=== PATIENT | female | born 1940 | race Caucasian/White ===

== ENCOUNTER 2018-07-11 11:25 | Emergency (ER) | payer OTHER ==
--- OUTSIDE RECORDS SUMMARY | 2018-07-11 11:28 | XMS REPORT | Clinical Summary ---
:1940 Author Organization [facility] Address [address] [place] [address] Care Team Providers Name Role Phone David Molina MD Primary Care Provider Allergies No Known Allergies Medications Medication Sig Dispensed Refills Start Date End Date Status losartan (COZAAR) 100 MG Take 50 mg by 0 Active tablet mouth daily. furosemide (LASIX) 20 MG Take 20 mg by 0 Active tablet mouth daily. potassium chloride Take 20 mEq 0 Active (K-DUR,KLOR-CON) 10 MEQ CR by mouth tablet every morning. In the morning potassium chloride Take 10 mEq 0 Active (K-DUR,KLOR-CON) 10 MEQ CR by mouth tablet every evening. magnesium oxide (MAG-OX) Take 400 mg 0 Active 400 mg tablet by mouth daily. ALPRAZolam (XANAX) 0.5 MG Take 0.5 mg 0 Active tablet by mouth nightly as needed. traZODone (DESYREL) 100 MG Take 100 mg 0 Active tablet by mouth nightly. fexofenadine (HYACINTH) 180 Take 180 mg 0 Active MG tablet by mouth daily as needed (allergies). fluticasone (FLONASE) 50 1 spray into 0 Active mcg/actuation nasal spray each nostril daily as needed. ascorbic acid, vitamin C, Take 1,000 mg 0 Active (VITAMIN C) 1000 MG tablet by mouth daily. methylsulfonylmethane (MSM) Take 1 0 Active 1,000 mg capsule capsule by mouth daily. GLUCOSAM/CHOND/HYALU/CF Take 1 0 Active BORATE (MOVE FREE JOINT capsule by HEALTH ORAL) mouth daily. dabigatran etexilate Take 75 mg by 0 Active (PRADAXA) 75 mg capsule mouth 2 (two) times a day. Active Problems Problem Noted Date Atypical atrial flutter 05/09/2016 Atrial fibrillation with RVR 01/23/2016 Family History Medical History Relation Name Comments Lung cancer Brother Hypertension Father Kidney failure Father Diabetes Mother Heart attack Mother Hypertension Mother Stroke Mother Relation Name Status Comments Brother Father Mother Social History Tobacco Use Types Packs/Day Years Used Date Former Smoker 1 23 Tobacco Cessation: Counseling Given: No Alcohol Use Drinks/Week oz/Week Comments No Sex Assigned at Date Recorded Not on file Job Start Date Occupation Industry Not on file Not on file Not on file Travel History Travel Start Travel End No recent travel history available. Last Filed Vital Signs Not on file Plan of Treatment Health Maintenance Due Date Last Done Comments SHINGLES VACCINES (1 of 2) 1990 PNEUMOCOCCAL POLYSACCHARIDE VACCINE AGE 65 AND OVER 2005 PNEUMOCOCCAL-13 2005 INFLUENZA VACCINE 01/03/2018 Implants Implanted Type Area Manager Office Device Shelf Model / Identifier Expiration Serial / Date Lot System Reveal Linq W/Monitors - [id number] Cardiac N/A: [employer] 2016 LINQSYS / Implanted: 06/08/2016 (Quantity not on file) Pacemakers and N/A CARDIAC RHYTHM / Related DISEASE MGMT [id number] Products Results Not on fileafter 07/10/2017 Insurance Payer Benefit Plan / Group Subscriber ID Type Phone Address MEDICARE MEDICARE PART A AND B xxxxxxxxxx Medicare [place], [place] FOR LIFE xxxxxxxxx Advance Directives Patient has advance care planning documents, and code status on file. For more information, please contact:[place] [address] Code Status Date Activated Date Inactivated Comments Full Code 01/24/2016 11:13 AM 01/26/2016 6:59 PM Code Status decision reached by: Patient
--- NOTE | 2018-07-11 12:54 | RAD REPORT ---
EXAM DESCRIPTION: RAD - Chest Pa And Lat (2 Views) - 07/11/2018 12:48 pm CLINICAL HISTORY: COUGH Chest pain. COMPARISON: Chest Pa And Lat (2 Views) dated 09/08/2016; CHEST SINGLE VIEW dated 10/13/2010 FINDINGS: The lungs are clear. The heart is mildly prominent in size with postsurgical changes of a CABG noted. No displaced fractures. IMPRESSION: No acute abnormality is suspected. Mild cardiomegaly with postsurgical changes of a CABG noted.
--- NOTE | 2018-07-11 13:12 | ER ---
Nurse's Notes [facility] Name: Allegra Anton Age: 77 yrs Sex: Female : 1940 Arrival Date: 07/11/2018 Time: 11:29 Bed 7 Private MD: Torrey Sahu F Diagnosis: Acute bronchitis Presentation: 07/11 11:39 Presenting complaint: Patient states: productive cough that began 1 week ago. Pt denies aa5 SOB. Pt states "It's hard for me to sleep because I've been coughing so much". Transition of care: patient was not received from another setting of care. Onset of symptoms was June 2018. Risk Assessment: Do you want to hurt yourself or someone else? Patient reports no desire to harm self or others. Initial Sepsis Screen: Does the patient meet any 2 criteria? No. Patient's initial sepsis screen is negative. Does the patient have a suspected source of infection? No. Patient's initial sepsis screen is negative. Care prior to arrival: None. 11:39 Method Of Arrival: Ambulatory aa5 11:39 Acuity: TANIKA 3 aa5 Historical: - Allergies: 11:40 No Known Allergies; aa5 - PMHx: 11:40 Atrial Fib; Hypertension; Myocardial infarction; aa5 - PSHx: 11:40 Heart stents; Heart Double bypass; Heart Monitor; Heart Ablation; aa5 - Immunization history:: Pneumococcal vaccine is up to date, Flu vaccine is up to date. - Social history:: Smoking status: Patient/guardian denies using tobacco. - Ebola Screening: : No symptoms or risks identified at this time. Screenin:36 Abuse screen: Denies threats or abuse. Denies injuries from another. Nutritional iw screening: No deficits noted. Tuberculosis screening: No symptoms or risk factors identified. Fall Risk None identified. Assessment: 12:30 General: Appears in no apparent distress. comfortable, Behavior is calm, cooperative, aj appropriate for age. Pain: Denies pain. Cardiovascular: No deficits noted. Capillary refill < 3 seconds in bilateral fingers Patient's skin is warm and dry. Respiratory: Reports cough that is productive, persistent Airway is patent Respiratory effort is even, unlabored, Respiratory pattern is regular, symmetrical, Breath sounds are clear. Derm: Skin is intact, is healthy with good turgor, Skin is pink, warm \\T\\ dry. normal. Vital Signs: 11:41 BP 151 / 72; Pulse 60; Resp 18 S; Temp 98.6(TE); Pulse Ox 96% on R/A; Weight 58.97 kg aa5 (R); Height 5 ft. 2 in. (157.48 cm) (R); Pain 3/10; 11:41 Body Mass Index 23.78 (58.97 kg, 157.48 cm) aa5 11:41 Pt c/o headache aa5 ED Course: 11:29 Patient arrived in ED. mr 11:29 Torrey Sahu MD is Private Physician. mr 11:40 Triage completed. aa5 11:41 Arm band placed on. aa5 11:42 Micah Coronel MD is Attending Physician. rn 11:42 Chris Negron PA is PHCP. [facility] 11:43 Chris Negron PA is PHCP. [facility] 11:43 Talisha Worthy RN is Primary Nurse. aj 12:47 X-ray completed. Patient tolerated procedure well. Patient moved back from radiology. 1 12:51 XRAY Chest Pa And Lat (2 Views) In Process Unspecified. EDMS 13:12 Torrey Sahu MD is Referral Physician. [facility] 13:36 No provider procedures requiring assistance completed. Patient did not have IV access iw during this emergency room visit. 13:38 Patient has correct armband on for positive identification. iw Administered Medications: No medications were administered Outcome: 13:12 Discharge ordered by MD. [facility] 13:37 Discharged to home ambulatory, with family. iw 13:37 Condition: good 13:37 Discharge instructions given to patient, family, Instructed on discharge instructions, follow up and referral plans. Demonstrated understanding of instructions, follow-up care, medications, Prescriptions given X 3. 13:38 Patient left the ED. iw Signatures: Dispatcher [employer] EDMS Talisha Worthy, Chris Schroeder RN, PA PA [facility] Cynthia Ferguson Martha 1 Fatimah Malin, TEJAS LAZARO iw Micah Coronel MD MD rn Calderon, Audri, RN RN [facility]
--- NOTE | 2018-07-11 13:13 | EDPHYS ---
Physician Documentation [facility] Name: Allegra Anton Age: 77 yrs Sex: Female : 1940 Arrival Date: 07/11/2018 Time: 11:29 Bed 7 Private MD: Torrey Sahu F ED Physician Micah Coronel HPI: 07/11 11:43 This 77 yrs old Female presents to ER via Ambulatory with complaints of jmm Cough, Congestion. 11:43 The patient or guardian reports cough, with productive sputum. Associated signs and jmm symptoms: Pertinent negatives: fever. This is a 77 year old female with a history of CAD, HTN that presents to the ED with complaints of productive cough, sore throat for 1 week. Patient denies fever. had similar symptoms which resolved after a course of antibiotics. Denies chest pain, denies fever. . Historical: - Allergies: 11:40 No Known Allergies; aa5 - PMHx: 11:40 Atrial Fib; Hypertension; Myocardial infarction; aa5 - PSHx: 11:40 Heart stents; Heart Double bypass; Heart Monitor; Heart Ablation; aa5 - Immunization history:: Pneumococcal vaccine is up to date, Flu vaccine is up to date. - Social history:: Smoking status: Patient/guardian denies using tobacco. - Ebola Screening: : No symptoms or risks identified at this time. ROS: 11:43 Constitutional: Negative for fever, chills, and weight loss, Cardiovascular: Negative jmm for chest pain, palpitations, and edema. 11:43 Abdomen/GI: Negative for abdominal pain, nausea, vomiting, diarrhea, and constipation. 11:43 ENT: Positive for ear pain, sore throat. 11:43 Respiratory: Positive for cough. 11:43 All other systems are negative. Exam: 11:43 Constitutional: This is a well developed, well nourished patient who is awake, alert, jmm and in no acute distress. Head/Face: atraumatic. Eyes: EOMI, no conjunctival erythema appreciated 11:43 Neck: Trachea midline, Supple Chest/axilla: Normal chest wall appearance and motion. Cardiovascular: Regular rate and rhythm. No edema appreciated Respiratory: Normal respirations, no respiratory distress appreciated Abdomen/GI: Non distended, soft Back: Normal ROM Skin: General appearance color normal MS/ Extremity: Moves all extremities, no obvious deformities appreciated, no edema noted to the lower extremities Neuro: Awake and alert, normal gait Psych: Behavior is normal, Mood is normal, Patient is cooperative and pleasant 11:43 ENT: TM's: are normal, Posterior pharynx: erythema, that is mild. 11:43 Respiratory: Breath sounds: are clear throughout. Vital Signs: 11:41 BP 151 / 72; Pulse 60; Resp 18 S; Temp 98.6(TE); Pulse Ox 96% on R/A; Weight 58.97 kg aa5 (R); Height 5 ft. 2 in. (157.48 cm) (R); Pain 3/10; 11:41 Body Mass Index 23.78 (58.97 kg, 157.48 cm) aa5 11:41 Pt c/o headache aa5 MDM: 11:43 Patient medically screened. rn 13:04 Data reviewed: vital signs, nurses notes. Counseling: I had a detailed discussion with naya the patient and/or guardian regarding: the historical points, exam findings, and any diagnostic results supporting the discharge/admit diagnosis, radiology results, the need for outpatient follow up, to return to the emergency department if symptoms worsen or persist or if there are any questions or concerns that arise at home. ED course: Patient is alert and non toxic in appearance in the ED. CXR negative. Patient has no signs of RESP distress. Patient advised to follow up with Dr. Durham for reevaluation. Patient given strict return precautions. Patient understood and agrees with the plan of care. . 07/11 11:51 Order name: Flu; Complete Time: 12:41 [facility] 07/11 11:42 Order name: XRAY Chest Pa And Lat (2 Views); Complete Time: 12:56 rn Administered Medications: No medications were administered Disposition: 14:09 Co-signature as Attending Physician, Micah Coronel MD. rn Disposition: 07/11/18 13:12 Discharged to Home. Impression: Acute bronchitis. - Condition is Stable. - Discharge Instructions: Acute Bronchitis, Adult. - Prescriptions for cefdinir 300 mg Oral capsule - take 1 capsule by ORAL route every 12 hours; 20 capsule. benzonatate 100 mg Oral Capsule - take 1 capsule by ORAL route 3 times per day; 20 capsule. Albuterol Sulfate 90 mcg/actuation - inhale 1-2 puff by INHALATION route every 4-6 hours; 1 Inhaler. - Medication Reconciliation Form, Thank You Letter, Antibiotic Education, Prescription Opioid Use form. - Follow up: Torrey Sahu MD; When: 2 - 3 days; Reason: Recheck today's complaints, Continuance of care, Re-evaluation by your physician. Signatures: Dispatcher [employer] EDMS Chris Negron PA PA jmm Williams, Irene, RN RN iw Nieto, Roman, MD MD rn Calderon, Audri, RN RN aa5 Corrections: (The following items were deleted from the chart) 13:38 13:12 07/11/2018 13:12 Discharged to Home. Impression: Acute bronchitis. Condition is iw Stable. Forms are Medication Reconciliation Form, Thank You Letter, Antibiotic Education, Prescription Opioid Use. Follow up: Torrey Sahu; When: 2 - 3 days; Reason: Recheck today's complaints, Continuance of care, Re-evaluation by your physician. naya
== END 2018-07-11 13:38 | disposition home or self-care (01) ==
LOC: ER 11:25
DX: J20.9 Acute bronchitis, unspecified (principal); I10 Essential (primary) hypertension; I25.2 Old myocardial infarction; Z95.818 Presence of other cardiac implants and grafts
CPT/HCPCS: 71046; 87804; 99283

== ENCOUNTER 2020-09-07 19:12 | Emergency (ER) | payer OTHER ==
--- OUTSIDE RECORDS SUMMARY | 2020-09-07 19:16 | XMS REPORT | Continuity of Care Document ---
:1940 Author Organization [facility] t Address [address] [place] [address] Dr. [address]. [address] [place] [address] Care Team Providers Name Role Phone Lenin Phillips MD Attending Clinician Problems This patient has no known problems. Allergies, Adverse Reactions, Alerts This patient has no known allergies or adverse reactions. Medications This patient has no known medications. Procedures This patient has no known procedures. Encounters Start End Encounter Admission Attending Care Care Encounter Source Date/Time Date/Time Type Type Clinicians Facility Department ID 2020-08-17 2020-08-17 Office MATHEW Phillips [id number] 13:23:00 15:03:34 Visit Jem Borges [id number] Patricia [id number] Carlo [id number] [facility] 2020-04-07 2020-04-07 Outpatient [facility] [id number] [facility] 2020-03-31 2020-03-31 Outpatient [facility] [id number] [facility] 2020-03-09 2020-03-09 Outpatient [facility] [id number] [facility] Results This patient has no known results.
--- NOTE | 2020-09-07 19:26 | EDPHYS ---
Physician Documentation [facility] Name: Allegra Anton Age: 80 yrs Sex: Female : 1940 Arrival Date: 09/07/2020 Time: 19:13 Bed Waiting Private MD: ED Physician Dalton Howard HPI: 09/07 19:40 This 80 yrs old Female presents to ER via Ambulatory with complaints of kb Medication Refill. 19:40 The patient presents to the emergency department requesting refill(s) for: Xanax. The kb patient chronically suffers from anxiety. The patient has not experienced similar symptoms in the past. The patient has not recently seen a physician. Pt reports she has taken xanax nightly for sleep for the last 18 years. States she cannot sleep without it and she took her last one last night. States she takes the lowest dose available, 0.25mg, but cannot stop taking it. . Historical: - Allergies: 19:18 No Known Allergies; ll1 - PMHx: 19:18 Atrial Fib; Hypertension; Myocardial infarction; ll1 - PSHx: 19:18 Heart stents; Heart Double bypass; Heart Monitor; Heart Ablation; ll1 - Immunization history:: Client reports receiving the 1st dose of the Covid vaccine, . - Social history:: Smoking status: Patient denies any tobacco usage or history of. ROS: 19:39 Constitutional: Negative for fever, chills, and weight loss, Cardiovascular: Negative kb for chest pain, palpitations, and edema, Respiratory: Negative for shortness of breath, cough, wheezing, and pleuritic chest pain, Abdomen/GI: Negative for abdominal pain, nausea, vomiting, diarrhea, and constipation, MS/Extremity: Negative for injury and deformity, Skin: Negative for injury, rash, and discoloration, Neuro: Negative for headache, weakness, numbness, tingling, and seizure. Exam: 19:40 Constitutional: This is a well developed, well nourished patient who is awake, alert, kb and in no acute distress. Head/Face: Normocephalic, atraumatic. Respiratory: Respirations even and unlabored. No increased work of breathing, no retractions or nasal flaring. Neuro: Awake and alert, GCS 15, oriented to person, place, time, and situation. Moves all extremities. Normal gait. Vital Signs: 19:21 BP 179 / 64; Pulse 53; Resp 16; Temp 97.3; Pulse Ox 96% ; Weight 55.79 kg; Height 5 ft. ll1 2 in. (157.48 cm); Pain 0/10; 19:21 Body Mass Index 22.50 (55.79 kg, 157.48 cm) ll1 MDM: 19:25 Patient medically screened. kb 19:40 Data reviewed: vital signs, nurses notes. Data interpreted: Pulse oximetry: on room air kb is 96 %. Interpretation: normal. Counseling: I had a detailed discussion with the patient and/or guardian regarding: the historical points, exam findings, and any diagnostic results supporting the discharge/admit diagnosis, the need for outpatient follow up, a family practitioner, to return to the emergency department if symptoms worsen or persist or if there are any questions or concerns that arise at home. Administered Medications: No medications were administered Disposition: 09/08 08:16 Co-signature as Attending Physician, Dalton Howard MD. mikey Disposition: 09/07/20 19:25 Discharged to Home. Impression: Encounter for issue of repeat prescription. - Condition is Stable. - Discharge Instructions: Medicine Refill at the Emergency Department. - Prescriptions for alprazolam 0.25 mg Oral tablet - take 1 tablet by ORAL route At bedtime; 10 tablet. - Medication Reconciliation Form, Thank You Letter, Antibiotic Education, Prescription Opioid Use form. - Follow up: Emergency Department; When: As needed; Reason: Worsening of condition. Follow up: Private Physician; When: 2 - 3 days; Reason: Recheck today's complaints, Continuance of care, Re-evaluation by your physician. Signatures: Tamiko Whalen, SABRA MARTINEZ-Dalton Riley MD MD pkl Claudia Ramirez RN RN ll1 Corrections: (The following items were deleted from the chart) 09/07 19:40 19:25 09/07/2020 19:25 Discharged to Home. Impression: Encounter for issue of repeat ll1 prescription. Condition is Stable. Forms are Medication Reconciliation Form, Thank You Letter, Antibiotic Education, Prescription Opioid Use. Follow up: Emergency Department; When: As needed; Reason: Worsening of condition. Follow up: Private Physician; When: 2 - 3 days; Reason: Recheck today's complaints, Continuance of care, Re-evaluation by your physician. kb
--- NOTE | 2020-09-07 19:26 | ER ---
Nurse's Notes [facility] Name: Allegra Anton Age: 80 yrs Sex: Female : 1940 Arrival Date: 09/07/2020 Time: 19:13 Bed Waiting Private MD: Diagnosis: Encounter for issue of repeat prescription Presentation: 09/07 19:21 Chief complaint: Patient states: Took her last alprazolam .25 mg PO last night. Out ll1 now. Coronavirus screen: Client denies travel out of the [place] in the last 14 days. At this time, the client does not indicate any symptoms associated with coronavirus-19. Ebola Screen: Patient denies travel to an Ebola-affected area in the 21 days before illness onset. Initial Sepsis Screen: Does the patient meet any 2 criteria? No. Patient's initial sepsis screen is negative. Does the patient have a suspected source of infection? No. Patient's initial sepsis screen is negative. Risk Assessment: Do you want to hurt yourself or someone else? Patient reports no desire to harm self or others. Onset of symptoms was September 07, 2020. 19:21 Method Of Arrival: Ambulatory ll1 19:21 Acuity: TANIKA 5 ll1 Triage Assessment: 19:21 General: Appears in no apparent distress. Behavior is calm, cooperative, appropriate ll1 for age. General: needs xanax prescription refill.. Pain: Denies pain. Historical: - Allergies: 19:18 No Known Allergies; ll1 - PMHx: 19:18 Atrial Fib; Hypertension; Myocardial infarction; ll1 - PSHx: 19:18 Heart stents; Heart Double bypass; Heart Monitor; Heart Ablation; ll1 - Immunization history:: Client reports receiving the 1st dose of the Covid vaccine, . - Social history:: Smoking status: Patient denies any tobacco usage or history of. Screenin:38 Abuse screen: Denies threats or abuse. Nutritional screening: No deficits noted. ll1 Tuberculosis screening: No symptoms or risk factors identified. Fall Risk None identified. Total Lockhart Fall Scale indicates No Risk (0-24 pts). Vital Signs: 19:21 BP 179 / 64; Pulse 53; Resp 16; Temp 97.3; Pulse Ox 96% ; Weight 55.79 kg; Height 5 ft. ll1 2 in. (157.48 cm); Pain 0/10; 19:21 Body Mass Index 22.50 (55.79 kg, 157.48 cm) ll1 ED Course: 19:13 Patient arrived in ED. cf2 19:17 Arm band placed on Patient notified of wait time. ll1 19:23 Tamiko Whalen FNP-C is [facility]. kb 19:23 Dalton Howard MD is Attending Physician. kb 19:25 Triage completed. ll1 19:39 Patient has correct armband on for positive identification. Call light in reach. Side ll1 rails up X 1. 19:39 No provider procedures requiring assistance completed. Patient did not have IV access ll1 during this emergency room visit. Administered Medications: No medications were administered Outcome: 19:25 Discharge ordered by . kb 19:39 Discharged to home ambulatory. ll1 19:39 Condition: stable 19:39 Discharge instructions given to patient, Instructed on discharge instructions, follow up and referral plans. medication usage, Demonstrated understanding of instructions, follow-up care, medications, Prescriptions given X 1. 19:40 Patient left the ED. ll1 Signatures: Tamiko Whalen FNP-C FNP-Izzy Barron cf2 Claudia Ramirez, RN RN ll1
[2020-09-07 22:27] VITALS: BP 179/64; TEMP 97.3; O2SAT 96
== END 2020-09-07 19:40 | disposition home or self-care (01) ==
LOC: ER 19:12
DX: Z76.0 Encounter for issue of repeat prescription (principal); F41.9 Anxiety disorder, unspecified; I10 Essential (primary) hypertension; I48.91 Unspecified atrial fibrillation; I25.2 Old myocardial infarction; Z95.5 Presence of coronary angioplasty implant and graft; Z95.1 Presence of aortocoronary bypass graft
CPT/HCPCS: 99282

== ENCOUNTER 2020-12-12 12:17 | Emergency (ER) | payer OTHER ==
--- OUTSIDE RECORDS SUMMARY | 2020-12-12 12:22 | XMS REPORT | Continuity of Care Document ---
:[address] [facility] t Address [address] [place] [address] Care Team Providers Name Role Phone Tracy SANDRA Primary Care Physician Lillie SANDRA Attending Clinician Jacqueline SANDRA, Gene Attending Clinician Problems Condition Condition Condition Status Onset Resolution Last Treating Co mments Source Name Details Category Date Date Treatment Clinician Date Atypical A[facility]ical Disease [facility] flutter 00:[facility]: st 00 Atrial Atrial Disease Active [place] fibr[facility]ati fibrillati 8-20 Me thodi on with on with 00:00: st RVR RVR 00 Allergies, Adverse Reactions, Alerts This patient has no known allergies or adverse reactions. Family History Family Member Diagnosis Comments Start Date Stop Date Source Natural mother Stroke [place] [facility] Natural mother Diabetes [place] [facility] Natural mother Heart attack [facility] Natural mother Hypertension [facility] Natural brother Lung cancer [facility] Natural father Hypertension [facility] Natural father Kidney failure [place] Social History Social Habit Start Date Stop Date Quantity Comments Source Cigarettes smoked 2017-01-03 2017-01-03 [facility] current (pack per 00:00:00 00:00:00 day) - Reported Cigarette 2017-01-03 2017-01-03 [facility] pack-years 00:00:00 00:00:00 Alcohol intake 2017-01-03 2017-01-03 Current [place] [facility] 00:00:00 00:00:00 non-drinker of alcohol (finding) Sex Ass[birth year] At [birth year] [place] [facility] 00:00:00 00:00:00 Smoking Status Start Date Stop Date Source Former smoker 2017-01-03 00:00:00 2017-01-03 00:00:00 [facility] Medications Ordered Filled Start Stop Current Ordering Indication Dosage Frequency Signature Comments Components Source Medication Medication Date Date Medication? Clinician (SIG) Name Name losartan 2017- Yes 50mg QD Take 50 mg [place] (COZAAR) 8-01 by mouth [facility] 100 MG 14:49: daily. st tablet 11 furosemide Yes 20mg QD Take 20 mg [place] (LASIX) 20 8-01 by mouth Metho di MG tablet 14:49: daily. st 11 potassium 2017- Yes 20meq QD Take 20 [place] chloride 8-01 mEq by [facility] (K-DUR,KLOR 14:49: mouth st -CON) 10 11 every MEQ CR morning. tablet In the morning potassium 2017- Yes 10meq QD Take 10 [place] chloride 8-01 mEq by [facility] (K-DUR,KLOR 14:49: mouth st -CON) 10 11 every MEQ CR evening. tablet magnesium 2017 Yes 400mg QD Take 400 [place] oxide 8-01 mg by [facility] (MAG-OX) 14:49: mouth st 400 mg 11 daily. tablet ALPRAZolam 2017- Yes .5mg QD Take 0.5 [place] (XANAX) 0.5 8-01 mg by [facility] MG tablet 14:49: mouth st 11 nightly as needed. traZODone 2017-0 Yes 100mg QD Take 100 [place] (DESYREL) 8-01 mg by [facility] 100 MG 14:49: mouth st tablet 11 nightly. fexofenadin 2017-0 Yes 180mg Q24H Take 180 [place] e (HYACINTH) 8-01 mg by [facility] 180 MG 14:49: mouth st tablet 11 daily as needed (allergies ). fluticasone 2017- Yes 1{spray Q24H 1 spray [facility] (FLONASE) 01-03 } into each Metho di 50 14:49: nostril st mcg/actuati 11 daily as on nasal needed. spray ascorbic 2016- Yes 1000mg QD Take 1,000 [place] acid, 8-01 mg by Lori vitamin C, 14:49: mouth st (VITAMIN C) 11 daily. 1000 MG tablet methylsulfo Yes 1{capsu QD Take 1 [place] nylmethane 01-03 le} capsule by Met garcia (MSM) 1,000 14:49: mouth st mg capsule 11 daily. GLUCOSAM/CH 2017 Yes 1{capsu QD Take 1 [place] OND/HYALU/C 8 le} capsule by Me jenn Connors BORGILMER 14:49: mouth st (MOVE FREE 11 daily. [facility]) dabigatran Yes 75mg Q.5D Take 75 mg [place] etexilate 01-03 by mouth 2 Meth felecia (PRADAXA) 14:49: (two) st 75 mg 11 times a capsule day. Procedures This patient has no known procedures. Plan of Care Planned Activity Planned Date Details Comments Source Future Scheduled 2021-01-03 INFLUENZA VACCINE [facility] Test 00:00:00 [code = INFLUENZA VACCINE] Future Scheduled 2005 65+ PNEUMOCOCCAL [facility] Test 00:00:00 VACCINE (1 of 1 - PPSV23) [code = 65+ PNEUMOCOCCAL VACCINE (1 of 1 - PPSV23)] Future Scheduled 1990 SHINGLES VACCINES (#1) [facility] Test 00:00:00 [code = SHINGLES VACCINES (#1)] Future Scheduled 1952 COVID-19 VACCINE (1) [facility] Test 00:00:00 [code = COVID-19 VACCINE (1)] Encounters Start End Encounter Admission Attending Care Care Encounter Source Date/Time Date/Time Type Type Clinicians Facility Department ID 2020-12-07 2020-12-07 MATHEW Reid [id number] 00:00:00 00:00:00 Anthony Borges [id number] Patricia [id number] Carlo [phone] [address] 2020-09-24 2020-09-24 Telephone [facility] [id number] 00:00:00 00:00:00 Anthony Borges [id number] [place] [id number] Professio [id number] [address] 2020-09-22 2020-09-22 [facility] [id number] 14:45:00 23:59:00 Encounter Jem Phelps [facility] [id number] [facility] [id number] 2020-09-07 2020-09-07 Refill [facility] [id number] 00:00:00 00:00:00 Anthony Borges [id number] [place] [id number] Professio [id number] [address] 2020-08-17 2020-08-17 Office [facility] [id number] 13:23:00 15:03:34 Visit Jem [place] [id number] [place] [id number] Professio [id number] [address] 2020-04-07 2020-04-[address] [facility] [id number] 2020-03-31 2020-03-31 [facility] [id number] [facility] 2020-03-09 2020-03-09 [facility] [id number] [facility] Results This patient has no known results.
--- NOTE | 2020-12-12 12:40 | EDPHYS ---
Physician Documentation [facility] Name: Allegra Anton Age: 80 yrs Sex: Female : 1940 Arrival Date: 12/12/2020 Time: 12:21 Bed Waiting Private MD: ED Physician Rod Simmons HPI: 12/12 12:37 This 80 yrs old Female presents to ER via Ambulatory with complaints of tw4 Medication Refill. 12:37 The patient presents to the emergency department requesting refill(s) for: ALPRAZOLAM. tw4 The patient chronically suffers from ANXIETY. The patient has not experienced similar symptoms in the past. Historical: - Allergies: 12:36 No Known Allergies; ca1 - Home Meds: 12:36 Cozaar 100 mg Oral tab 1 tab once daily [Active]; carvedilol 25 mg oral tab 1 tab 2 ca1 times per day [Active]; furosemide 20 mg Oral tab 1 tab once daily [Active]; Klor-Con 10 10 mEq Oral TbER 1 tab 2 times per day [Active]; magnesium oxide 400 mg magnesium Oral tab 400 mg daily [Active]; Pradaxa 75 mg oral cap 1 cap 2 times per day [Active]; alprazolam 0.25 mg Oral tab 1 tab nightly [Active]; trazodone 100 mg Oral tab 1 tab once daily [Active]; Maggie 180 mg Oral tab 1 tab once daily [Active]; Flonase 50 mcg/actuation Nasal spsn 1 spray once daily [Active]; pravastatin 20 mg oral tab 1 tab Monday and Monday [Active]; amiodarone 200 mg Oral tab 1 tab once daily [Active]; - PMHx: 12:36 Atrial Fib; Hypertension; Myocardial infarction; ca1 - Immunization history:: Client reports receiving the 2nd dose of the Covid vaccine, Client reports receiving the 1st dose of the Covid vaccine, Pneumococcal vaccine is up to date, Flu vaccine is up to date. - Social history:: Smoking status: Patient denies any tobacco usage or history of. ROS: 12:37 Constitutional: Negative for fever, chills, and weight loss, Eyes: Negative for injury, tw4 pain, redness, and discharge, Cardiovascular: Negative for chest pain, palpitations, and edema, Respiratory: Negative for shortness of breath, cough, wheezing, and pleuritic chest pain, Abdomen/GI: Negative for abdominal pain, nausea, vomiting, diarrhea, and constipation, Back: Negative for injury and pain, MS/Extremity: Negative for injury and deformity. 12:37 Psych: Positive for anxiety. Exam: 12:37 Constitutional: This is a well developed, well nourished patient who is awake, alert, tw4 and in no acute distress. Head/Face: Normocephalic, atraumatic. Chest/axilla: Normal chest wall appearance and motion. Nontender with no deformity. No lesions are appreciated. Cardiovascular: Regular rate and rhythm with a normal S1 and S2. No gallops, murmurs, or rubs. Normal PMI, no JVD. No pulse deficits. Respiratory: Lungs have equal breath sounds bilaterally, clear to auscultation and percussion. No rales, rhonchi or wheezes noted. No increased work of breathing, no retractions or nasal flaring. Abdomen/GI: Soft, non-tender, with normal bowel sounds. No distension or tympany. No guarding or rebound. No evidence of tenderness throughout. Back: No spinal tenderness. No costovertebral tenderness. Full range of motion. Skin: Warm, dry with normal turgor. Normal color with no rashes, no lesions, and no evidence of cellulitis. MS/ Extremity: Pulses equal, no cyanosis. Neurovascular intact. Full, normal range of motion. Vital Signs: 12:32 BP 165 / 63; Pulse 61; Resp 15 S; Temp 97.6(TE); Pulse Ox 98% on R/A; Weight 51.71 kg ca1 (R); Height 5 ft. 2 in. (157.48 cm) (R); Pain 0/10; 12:32 Body Mass Index 20.85 (51.71 kg, 157.48 cm) ca1 MDM: 12:37 Data reviewed: vital signs, nurses notes. Data interpreted: Pulse oximetry: tw4 Interpretation: normal. Counseling: I had a detailed discussion with the patient and/or guardian regarding: the historical points, exam findings, and any diagnostic results supporting the discharge/admit diagnosis. Special discussion: I discussed with the patient/guardian in detail that at this point there is no indication for admission to the hospital. It is understood, however, that if the symptoms persist or worsen the patient needs to return immediately for re-evaluation. 12:40 Patient medically screened. tw4 Administered Medications: No medications were administered Disposition Summary: 12/12/20 12:40 Discharge Ordered Location: Home tw4 Problem: new tw4 Symptoms: have improved tw4 Condition: Stable tw4 Diagnosis - Encounter for general adult medical examination tw4 - MEDICATION REFILL tw4 Followup: tw4 - With: Private Physician - When: Upon discharge from the Emergency Department - Reason: Recheck today's complaints, Continuance of care, Re-evaluation by your physician Discharge Instructions: - Discharge Summary Sheet tw4 - Generalized Anxiety Disorder, Adult tw4 Forms: - Medication Reconciliation Form tw4 - Thank You Letter tw4 - Antibiotic Education tw4 - Prescription Opioid Use tw4 Prescriptions: - alprazolam 0.25 mg Oral tablet - take 1 tablet by ORAL route At bedtime; 5 tablet; Refills: 0, Product Selection tw4 Permitted Signatures: Rod Simmons MD MD tw4 [place] Hollis RN RN ca1
--- NOTE | 2020-12-12 12:40 | ER ---
Nurse's Notes [facility] Name: Allegra Anton Age: 80 yrs Sex: Female : 1940 Arrival Date: 12/12/2020 Time: 12:21 Bed Waiting Private MD: Diagnosis: Encounter for general adult medical examination;MEDICATION REFILL Presentation: 12/12 12:32 Chief complaint: Patient states: I have been taking Xanax for 20 years now and I was ca1 trying to contact my provider for a refill but there's something wrong with my phone. I am okay now but am not so sure tonight if I don't get it. Denies any complaints at this time. Coronavirus screen: Client denies travel out of the [place] in the last 14 days. At this time, the client does not indicate any symptoms associated with coronavirus-19. Ebola Screen: Patient negative for fever greater than or equal to 101.5 degrees Fahrenheit, and additional compatible Ebola Virus Disease symptoms Patient denies exposure to infectious person. Patient denies travel to an Ebola-affected area in the 21 days before illness onset. No symptoms or risks identified at this time. Initial Sepsis Screen: Does the patient meet any 2 criteria? No. Patient's initial sepsis screen is negative. Does the patient have a suspected source of infection? No. Patient's initial sepsis screen is negative. Risk Assessment: Do you want to hurt yourself or someone else? Patient reports no desire to harm self or others. Onset of symptoms was December 12, 2020. 12:32 Method Of Arrival: Ambulatory ca1 12:32 Acuity: TANIKA 5 ca1 Historical: - Allergies: 12:36 No Known Allergies; ca1 - Home Meds: 12:36 Cozaar 100 mg Oral tab 1 tab once daily [Active]; carvedilol 25 mg oral tab 1 tab 2 ca1 times per day [Active]; furosemide 20 mg Oral tab 1 tab once daily [Active]; Klor-Con 10 10 mEq Oral TbER 1 tab 2 times per day [Active]; magnesium oxide 400 mg magnesium Oral tab 400 mg daily [Active]; Pradaxa 75 mg oral cap 1 cap 2 times per day [Active]; alprazolam 0.25 mg Oral tab 1 tab nightly [Active]; trazodone 100 mg Oral tab 1 tab once daily [Active]; Maggie 180 mg Oral tab 1 tab once daily [Active]; Flonase 50 mcg/actuation Nasal spsn 1 spray once daily [Active]; pravastatin 20 mg oral tab 1 tab Monday and Monday [Active]; amiodarone 200 mg Oral tab 1 tab once daily [Active]; - PMHx: 12:36 Atrial Fib; Hypertension; Myocardial infarction; ca1 - Immunization history:: Client reports receiving the 2nd dose of the Covid vaccine, Client reports receiving the 1st dose of the Covid vaccine, Pneumococcal vaccine is up to date, Flu vaccine is up to date. - Social history:: Smoking status: Patient denies any tobacco usage or history of. Screenin:40 Abuse screen: Denies threats or abuse. Denies injuries from another. Nutritional ca1 screening: No deficits noted. Tuberculosis screening: No symptoms or risk factors identified. Fall Risk None identified. Assessment: 12:39 General: Appears in no apparent distress. comfortable, Behavior is calm, cooperative, ca1 appropriate for age. 12:40 Pain: Denies pain. Neuro: Level of Consciousness is awake, alert, obeys commands, ca1 Oriented to person, place, time, situation. Derm: Skin is intact, is healthy with good turgor, Skin is pink, warm \T\ dry. Musculoskeletal: Circulation, motion, and sensation intact. Capillary refill < 3 seconds. Vital Signs: 12:32 BP 165 / 63; Pulse 61; Resp 15 S; Temp 97.6(TE); Pulse Ox 98% on R/A; Weight 51.71 kg ca1 (R); Height 5 ft. 2 in. (157.48 cm) (R); Pain 0/10; 12:32 Body Mass Index 20.85 (51.71 kg, 157.48 cm) ca1 ED Course: 12:21 Patient arrived in ED. as 12:35 Triage completed. ca1 12:36 Arm band placed on right wrist. ca1 12:37 Rod Simmons MD is Attending Physician. tw4 12:40 Patient has correct armband on for positive identification. ca1 12:40 No provider procedures requiring assistance completed. Patient did not have IV access ca1 during this emergency room visit. Administered Medications: No medications were administered Outcome: 12:40 Discharge ordered by . tw4 12:45 Discharged to home ambulatory, with significant other. ca1 12:45 Condition: stable 12:45 Discharge instructions given to patient, Instructed on discharge instructions, follow up and referral plans. no drinking with medication, no driving heavy equipment, medication usage, Demonstrated understanding of instructions, follow-up care, medications, Prescriptions given X 1. 12:46 Patient left the ED. ca1 Signatures: Tamika Matthews Terrence, MD MD tw4 [place] Hollis RN RN ca1 Corrections: (The following items were deleted from the chart) 12:35 12:32 Chief complaint: Patient states: I have been taking Xanax for 20 years now and I ca1 was trying to contact my provider for a refill but there's something wrong with my phone. I am okay now but am not so sure tonight if I don't get it. No complaints at this time ca1 12:40 12:32 BP 165 / 63; Pulse 21bpm; Resp 15bpm; Spontaneous; Pulse Ox 98% RA; Temp 97.6F ca1 Temporal; 51.71 kg Reported; Height 5 ft. 2 in. Reported; BMI: 20.8; Pain 0/10; ca1 12:40 12:39 General: Appears ca1 ca1
[2020-12-12 12:51] VITALS: BP 165/63; TEMP 97.6; O2SAT 98
== END 2020-12-12 12:46 | disposition home or self-care (01) ==
LOC: ER 12:17
DX: Z76.0 Encounter for issue of repeat prescription (principal)
CPT/HCPCS: 99282

== ENCOUNTER 2022-01-31 16:39 | Observation (INO) | payer OTHER ==
--- OUTSIDE RECORDS SUMMARY | 2022-01-31 16:43 | XMS REPORT | Continuity of Care Document ---
:1940 Author Organization [facility] t Address Formerly [facility] [place] [address] Care Team Providers Name Role Phone Augustin Moreira MD Primary Care Physician Mariya Emery Attending Clinician Unavailable Min Montiel Attending Clinician Unavailable Augustin Moreira MD Attending Clinician AUGUSTIN MOREIRA Attending Clinician Unavailable Doctor Unassigned, [place] Attending Clinician Unavailable EDDY QUINTANA Attending Clinician Unavailable Jem Phillips MD Attending Clinician Payers Payer Name Policy Type Policy Number Effective Date Expiration Date S ource Problems Condition Condition Condition Status Onset Resolution Last Treating Co mments Source Name Details Category Date Date Treatment Clinician Date Essential Essential Disease Active Uni vers hypertensi hypertensi 2-03 it y of on on 00:00: [place] 00 Medical Branch Generalize Generalize Disease Active U nivers d anxiety 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 00:00: [place] with panic with panic 00 Me dical attacks attacks Branch Bradycardi Bradycardi Disease Active 2021-0 U nivers a a 2-03 ity of 00:00: [place] 00 Medical Branch 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, B inosis, 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 00:00: [place] 00 Medical Branch Primary Primary Disease Active Univers insomnia insomnia 2-03 ity of 00:00: [place] 00 Medical Branch Memory Memory Disease Active Univers changes changes 1-31 ity of 00:00: [place] 00 Medical Branch Senile Senile Disease Active Univers osteoporos osteoporos 1-27 it y of is is 00:00: [place] 00 Medical Branch Need for Need for Disease Active Unive rs immunizati immunizati 1-27 it y of on against [place] influenza 00 [facility] Branch Need for Need for Disease Active Unive rs 23-polyval 23-polyval 1-27 it y of ent ent 00:00: [place] pneumococc pneumococc 00 [facility] al al Branch polysaccha polysaccha ride ride vaccine vaccine High High Disease Active Univers priority priority 1-27 ity of for for 00:00: [place] COVID-19 COVID-19 00 Medica l virus virus Branch vaccinatio vaccinatio n n Pain of Pain of Disease Active Univers both hip both hip 3-28 ity of joints joints 00:00: [place] 00 Medical Branch Primary Primary Disease Active Univers osteoarthr osteoarthr 3-28 it y of itis of itis of 00:00: [place] both hands both hands 00 In dical Branch Medicare Medicare Disease Active Unive rs annual annual 3-28 ity of wellness wellness 00:00: [place] visit, visit, 00 Medical subsequent subsequent Br anch Atypical Atypical Disease Active 2015-06 Metho di atrial atrial 2-05 st flutter flutter 00:00: Hospita 00 l Atrial Atrial Disease Active Methodi fibrillati fibrillati 8-20 st on with on with 00:00: Hospita RVR RVR 00 l Atrial Atrial Disease Active Univers fibrillati fibrillati 8-14 it y of on on 00:00: [place] 00 Medical Branch Coronary Coronary Disease Active Overview: Un bhumika atheroscle atheroscle 8-14 Formattin ity of rosis rosis 00:00: g of this [place] 00 note Medical might be Branch different from the original. ICD10 Diagnosis Term Head Kiln [employer] Utility HLD HLD Disease Active Overview: Univer s (hyperlipi (hyperlipi 01-16 Formattin ity of demia) demia) 00:00: g of this [place] 00 note Medical might be Branch different from the original. ICD10 Diagnosis Term Head [employer] Utility Osteoarthr Osteoarthr Disease Active U nivers itis itis 01-16 ity of 00:00: [place] 00 Medical Branch Prolapse Prolapse Disease Active Unive rs of female of female ity of bladder, bladder, [place] acquired acquired Medica l Branch Allergies, Adverse Reactions, Alerts Allergy Allergy Status Severity Reaction(s) Onset Inactive Treating Comm ents Source Name Type Date Date Clinician NO KNOWN Drug Active Univers ALLERGIE Class ity of S [facility] Family History Family Member Diagnosis Comments Start Date Stop Date Source Natural [facility] Hy[facility] Natural father [facility] Natural mother Diabetes [facility] Natural mother Hypertension [facility] Natural mother Stroke [facility] Social History Social Habit Start Date Stop Date Quantity Comments Source Exposure to Not sure University SARS-CoV-2 (event) [place] [facility] History SDOH University o f Alcohol Frequency [place] M edical [facility] History SDOK University o f Alcohol Std Drinks [place] [facility] History SDOK University o f Alcohol Binge [place] [facility] Tobacco use and 2017-08-01 2017-08-01 Smokeless Universit y of exposure 00:00:00 00:00:00 tobacco non-user [facility] dical Branch Alcohol intake 2017-01-03 2017-01-03 Current Christian 00:00:00 00:00:00 non-drinker of Hospital alcohol (finding) Cigarettes smoked 2016-04-22 2016-04-[address] current (pack per 00:00:00 00:00:00 Hospita l day) - Reported Cigarette 2016-04-22 2016-04-22 Christian pack-years 00:00:00 00:00:00 Hospital Alcohol Comment 2012-01-17 2012-01-17 Quit in 2006 Univers ity of 00:00:00 00:00:00 [facility] History of tobacco 1996-10-03 Cigarette Smoker University of use 00:00:00 [facility] Sex Ass[birth year] At [birth year] Christian 00:00:00 00:00:00 Hospital Smoking Status Start Date Stop Date Source Ex-smoker 2017-08-01 00:00:00 2017-08-01 00:00:00 [facility] Medications Ordered Filled Start Stop Current Ordering Indication Dosage Frequency Signature Comments Components Source Medication Medication Date Date Medication? Clinician (SIG) Name Name shantanu Yes [id number] 1{tbl} Take 1 Univers drochloroth 8-08 tablet by ity of iazide 00:00: mouth in [place] 100-25 mg 00 the Medical per tablet morning. Branc h Appointmen t needed for further refills. QUEtiapine Yes [id number] 25mg Take 1 U nivers (SEROQUEL) 2-24 tablet by ity of 25 mg 00:00: mouth [place] tablet 00 daily. Medical Branch QUEtiapine Yes [id number] 25mg Take 1 U nivers (SEROQUEL) 2-24 tablet by ity of 25 mg 00:00: mouth [place] tablet 00 daily. Medical Branch QUEtiapine Yes [id number] 25mg Take 1 U nivers (SEROQUEL) 2-24 tablet by ity of 25 mg 00:00: mouth [place] tablet 00 daily. Medical Branch furosemide Yes 20mg Take 20 mg U nivers (LASIX) 20 2-23 by mouth ity o f mg tablet 16:34: daily. Medical Branch potassium Yes 10meq Take 10 Univ ers chloride 2-23 mEq by ity of (KLOR-CON 16:34: mouth [place] 10) 10 mEq 09 daily. Medical CR tablet Indication Bran ch s: 20 mEq in AM, 10 mEq in PM magnesium Yes 1{tbl} Take 1 Tab Univers oxide 400 2-23 by mouth ity of mg Cap 16:34: daily. Medical Branch fexofenadin Yes 180mg Take 180 U nivers e (HYACINTH) 2-23 mg by ity of 180 mg 16:34: mouth as [place] tablet 09 needed. Medical Branch fluticasone Yes 1{spray Use 1 Un bhumika (FLONASE) 2-23 } [place] in ity of 50 16:34: each [place] mcg/actuati 09 nostril as Me dical on nasal needed. Branch spray dabigatran Yes 75mg Take 75 mg U nivers etexilate 2-23 by mouth 2 ity of (PRADAXA) 16:34: (two) [place] 75 mg 09 times Medical capsule daily. Branch amiodarone Yes 200mg Take 200 Un bhumika 200 mg 2-23 mg by ity of tablet 16:34: mouth [place] 09 daily. Medical Branch furosemide Yes 20mg Take 20 mg U nivers (LASIX) 20 2-23 by mouth ity o f mg tablet 16:34: daily. Medical Branch potassium Yes 10meq Take 10 Univ ers chloride 2-23 mEq by ity of (KLOR-CON 16:34: mouth [place] 10) 10 mEq 09 daily. Medical CR tablet Indication Bran ch s: 20 mEq in AM, 10 mEq in PM magnesium Yes 1{tbl} Take 1 Tab Univers oxide 400 2-23 by mouth ity of mg Cap 16:34: daily. Medical Branch fexofenadin Yes 180mg Take 180 U nivers e (HYACINTH) 2-23 mg by ity of 180 mg 16:34: mouth as [place] tablet 09 needed. Medical Branch fluticasone Yes 1{spray Use 1 Un bhumika (FLONASE) 2-23 } [place] in ity of 50 16:34: each [place] mcg/actuati 09 nostril as Me dical on nasal needed. Branch spray dabigatran Yes 75mg Take 75 mg U nivers etexilate 2-23 by mouth 2 ity of (PRADAXA) 16:34: (two) [place] 75 mg 09 times Medical capsule daily. Branch amiodarone Yes 200mg Take 200 Un bhumika 200 mg 2-23 mg by ity of tablet 16:34: mouth [place] 09 daily. Medical Branch furosemide Yes 20mg Take 20 mg U nivers (LASIX) 20 2-23 by mouth ity o f mg tablet 16:34: daily. Medical Branch potassium Yes 10meq Take 10 Univ ers chloride 2-23 mEq by ity of (KLOR-CON 16:34: mouth [place] 10) 10 mEq 09 daily. Medical CR tablet Indication Bran ch s: 20 mEq in AM, 10 mEq in PM magnesium Yes 1{tbl} Take 1 Tab Univers oxide 400 2-23 by mouth ity of mg Cap 16:34: daily. [place] 09 Medical Branch fexofenadin Yes 180mg Take 180 U nivers e (HYACINTH) 2-23 mg by ity of 180 mg 16:34: mouth as [place] tablet 09 needed. Medical Branch fluticasone Yes 1{spray Use 1 Un bhumika (FLONASE) 2-23 } [place] in ity of 50 16:34: each [place] mcg/actuati 09 nostril as Me dical on nasal needed. Branch spray dabigatran Yes 75mg Take 75 mg U nivers etexilate 2-23 by mouth 2 ity of (PRADAXA) 16:34: (two) [place] 75 mg 09 times Medical capsule daily. Branch amiodarone Yes 200mg Take 200 Un bhumika 200 mg 2-23 mg by ity of tablet 16:34: mouth [place] 09 daily. Medical Branch eszopiclone Yes [id number] 1mg Take 1 U nivers (LUNESTA) 1 2-23 tablet by ity of mg tablet 00:00: mouth at [facility] s 00 bedtime. Medical Branch eszopiclone Yes [id number] 1mg Take 1 U nivers (LUNESTA) 1 2-23 tablet by ity of mg tablet 00:00: mouth at [facility] s 00 bedtime. Medical Branch eszopiclone Yes [id number] 1mg Take 1 U nivers (LUNESTA) 1 2-23 tablet by ity of mg tablet 00:00: mouth at [facility] s 00 bedtime. Medical Branch traZODone Yes [id number] 150mg Take 1 U nivers 150 mg 2-17 tablet by ity of tablet 00:00: mouth at [place] 00 bedtime. Medical Branch melatonin Yes [id number] 1{tbl} Take 1 U nivers 10 mg Tab 2-17 tablet by ity o f 00:00: mouth at [place] 00 bedtime as Medical needed for Branch Insomnia. traZODone Yes [id number] 150mg Take 1 U nivers 150 mg 2-17 tablet by ity of tablet 00:00: mouth at [place] 00 bedtime. Medical Branch melatonin 2021-0 Yes [id number] 1{tbl} Take 1 U nivers 10 mg Tab 2-17 tablet by ity o f 00:00: mouth at [place] 00 bedtime as Medical needed for Branch Insomnia. traZODone Yes [id number] 150mg Take 1 U nivers 150 mg 2-17 tablet by ity of tablet 00:00: mouth at [place] 00 bedtime. Medical Branch melatonin 0 Yes [id number] 1{tbl} Take 1 U nivers 10 mg Tab 2-17 tablet by ity o f 00:00: mouth at [place] 00 bedtime as Medical needed for Branch Insomnia. pravastatin Yes [id number] TAKE 1 Univers 20 mg 2-03 TABLET ity of tablet 00:00: TWICE A [place] WEEK ON Medical MONDAY AND Branch MONDAY losartan-hy 2021-0 Yes [id number] 1{tbl} Take 1 Univers drochloroth 2-03 tablet by ity of iazide 00:00: mouth [place] 100-25 mg 00 daily. Medical per tablet Branch traMADoL 50 Yes [id number] 50mg Take 1 Univ ers mg tablet 2-03 tablet by ity o f 00:00: mouth [place] 00 every 8 Medical (eight) Branch hours as needed for Pain (scale 4-6). Indication s: chronic pain pravastatin Yes [id number] TAKE 1 Univers 20 mg 2-03 TABLET ity of tablet 00:00: TWICE A [place] WEEK ON Medical MONDAY AND Branch MONDAY losartan-hy 2021-0 Yes [id number] 1{tbl} Take 1 Univers drochloroth 2-03 tablet by ity of iazide 00:00: mouth [place] 100-25 mg 00 daily. Medical per tablet Branch traMADoL 50 0 Yes [id number] 50mg Take 1 Univ ers mg tablet 2-03 tablet by ity o f 00:00: mouth [place] 00 every 8 Medical (eight) Branch hours as needed for Pain (scale 4-6). Indication s: chronic pain pravastatin Yes [id number] TAKE 1 Univers 20 mg 2-03 TABLET ity of tablet 00:00: TWICE A [place] WEEK ON Medical MONDAY AND Branch MONDAY traMADoL 50 2022-0 Yes [id number] 50mg Take 1 Univ ers mg tablet 2-03 tablet by ity o f 00:00: mouth [place] 00 every 8 Medical (eight) Branch hours as needed for Pain (scale 4-6). Indication s: chronic pain losartan-hy 2021- No [id number] 1{tbl} Take 1 Univers drochloroth 2-03 08-08 tablet by it y of iazide 00:00: 00:00 mouth [place] 100-25 mg 00 :00 daily. Medical per tablet Branch carvediloL Yes Univers 25 mg 4-26 ity of tablet 00:00: [place] 00 Medical Branch carvediloL Yes Univers 25 mg 4-26 ity of tablet 00:00: [place] [facility] carvediloL Yes Univers 25 mg 4-26 ity of tablet 00:00: [place] 00 Medical Branch losartan Yes 50mg QD Take 50 mg Met hodi (COZAAR) 8-[address] 100 MG 14:49: daily. Hospita tablet 11 l furosemide Yes 20mg QD Take 20 mg M ethodi (LASIX) 20 8-[address] MG tablet 14:49: daily. Hospit a 11 l potassium 2016- Yes 20meq QD Take 20 Meth felecia chloride 8-[address] (K-DUR,KLOR 14:49: mouth Hospi ta -CON) 10 11 every l MEQ CR morning. tablet In the morning potassium Yes 10meq QD Take 10 Meth felecia chloride 8-[address] (K-DUR,KLOR 14:49: mouth Hospi ta -CON) 10 11 every l MEQ CR evening. tablet magnesium Yes 400mg QD Take 400 Met hodi oxide 8-[address] (MAG-OX) 14:49: mouth Hospita 400 mg 11 daily. l tablet ALPRAZolam 2017 Yes .5mg QD Take 0.5 Met hodi (XANAX) 0.5 8-[address] MG tablet 14:49: mouth Hospita 11 nightly as l needed. traZODone 2017- Yes 100mg QD Take 100 Met hodi (DESYREL) 8-[address] 100 MG 14:49: mouth Hospita tablet 11 nightly. l fexofenadin Yes 180mg Q24H Take 180 M ethodi e (HYACINTH) 8- mg by st 180 MG 14:49: mouth Hospita tablet 11 daily as l needed (allergies ). fluticasone Yes 1{spray Q24H 1 spray Methodi (FLONASE) 01-03 } into each st 50 14:49: nostril Hospita mcg/actuati 11 daily as l on nasal needed. spray ascorbic Yes 1000mg QD Take 1,000 M ethodi acid, 8- mg by vitamin C, 14:49: mouth Hospit a (VITAMIN C) 11 daily. l 1000 MG tablet methylsulfo Yes 1{capsu QD Take 1 M ethodi nylmethane 01-03 le} capsule by (MSM) 1,000 14:49: mouth Hospi ta mg capsule 11 daily. l GLUCOSAM/CH Yes 1{capsu QD Take 1 M ethodi OND/HYALU/C 01-03 le} capsule by F BORATE 14:49: mouth Hospita (MOVE FREE 11 daily. l [facility]) dabigatran Yes 75mg Q.5D Take 75 mg M ethodi etexilate 01-[address] (PRADAXA) 14:49: (two) Hospita 75 mg 11 times a l capsule day. Immunizations Ordered Filled Immunization Date Status Comments [facility] e Immunization Name Name SARS-COV-2 COVID-19 2021-05-08 Completed Unive rsity of MODERNA VACCINE 00:00:00 [facility] Influenza High Dose 2021-05-08 Completed Unive rsity of 00:00:00 [facility] SARS-COV-2 COVID-19 2021-05-08 Completed Unive rsity of MODERNA VACCINE 00:00:00 [facility] Influenza High Dose 2021-05-08 Completed Unive rsity of 00:00:00 [facility] SARS-COV-2 COVID-19 2021-05-08 Completed Unive rsity of MODERNA VACCINE 00:00:00 [facility] Influenza High Dose 2021-05-08 Completed Unive rsity of 00:00:00 [facility] SARS-COV-2 COVID-19 2020-09-24 Completed Unive rsity of MODERNA VACCINE 00:00:00 [facility] SARS-COV-2 COVID-19 2020-09-24 Completed Unive rsity of MODERNA VACCINE 00:00:00 [facility] SARS-COV-2 COVID-19 2020-09-24 Completed Unive rsity of MODERNA VACCINE 00:00:00 [facility] SARS-COV-2 COVID-19 2020-08-25 Completed Unive rsity of MODERNA VACCINE 00:00:00 [facility] SARS-COV-2 COVID-19 2020-08-25 Completed Unive rsity of MODERNA VACCINE 00:00:00 [facility] SARS-COV-2 COVID-19 2020-08-25 Completed Unive rsity of MODERNA VACCINE 00:00:00 [facility] Pneumococcal 2019-06-26 Completed University o f Polysaccharide, 00:00:00 [facility] PPSV23 (PNEUMOVAX) Branch Pneumococcal 2019-06-26 Completed University o f Polysaccharide, 00:00:00 [facility] PPSV23 (PNEUMOVAX) Branch Pneumococcal 2019-06-26 Completed University o f Polysaccharide, 00:00:00 [facility] PPSV23 (PNEUMOVAX) Branch Influenza High Dose 2018-04-06 Completed Unive rsity of 00:00:00 [facility] Pneumococcal 13 2018-04-06 Completed Universit y of Conjugate, PCV13 00:00:00 [facility] dical (Prevnar 13) Branch Influenza High Dose 2018-04-06 Completed Unive rsity of 00:00:00 [facility] Pneumococcal 13 2018-04-06 Completed Universit y of Conjugate, PCV13 00:00:00 [facility] dical (Prevnar 13) Branch Influenza High Dose 2018-04-06 Completed Unive rsity of 00:00:00 [facility] Pneumococcal 13 2018-04-06 Completed Universit y of Conjugate, PCV13 00:00:00 [facility] dical (Prevnar 13) Branch Procedures Procedure Date / Time Performing Clinician Source Performed AUTHORIZATION FOR 2021-08-31 05:01:00 Doctor Unassigned, No Univ ersity of [place] RELEASE OF PHI Name Medical Branch Plan of Care Planned Activity Planned Date Details Comments Source Future Scheduled 2022-01-20 HEPATITIS B VACCINES Met [facility] Test 03:23:45 (1 of 3 - 3-dose series) [code = HEPATITIS B VACCINES (1 of 3 - 3-dose series)] Future Scheduled 2022-01-20 COVID-19 VACCINE (#1) [facility] Test 03:23:45 [code = COVID-19 VACCINE (#1)] Future Scheduled 2022-01-20 SHINGLES VACCINES (1 Met [facility] Test 03:23:45 of 2) [code = SHINGLES VACCINES (1 of 2)] Future Scheduled 2022-01-20 65+ PNEUMOCOCCAL [facility] Test 03:23:45 VACCINE (1 - PCV) [code = 65+ PNEUMOCOCCAL VACCINE (1 - PCV)] Future Scheduled 2022-01-20 INFLUENZA VACCINE [facility] Test 03:23:45 [code = INFLUENZA VACCINE] Encounters Start End Encounter Admission Attending Care Care Encounter Source Date/Time Date/Time Type Type Clinicians Facility Department ID 2021-12-22 Outpatient Emery, [facility]ML[facility] [id number] Common 09:02:01 Mariya [facility] 2021-09-22 Outpatient Emery, [facility]MLC [facility] [id number] Common 10:09:05 Mariya [facility] 2021-08-23 Outpatient Emery, [facility]LMLC [facility] [id number] Common 10:27:02 Mariya [facility] 2021-08-06 Outpatient Emery, [facility]LMLC [facility] [id number] Common 09:21:02 Mariya [facility] 2021-07-27 Outpatient Emery, STLMLC ST[facility] [id number] Common 15:15:02 Mariya [facility] 2021-06-30 Outpatient Min Montiel [facility] [id number] Common 11:52:04 [id number] [facility] 2022-01-07 2022-01-07 Jacob Moreira [facility] [id number] Univers 00:00:00 00:00:00 Augustin BORGES [id number] i ty of [id number] [phone] In dical NAL [address] [place] [address] 2022-01-05 2022-01-05 Outpatient R INGRID [facility] [id number] Univers 13:20:00 13:20:00 AUGUSTIN becky [facility] 2021-12-09 2021-12-09 ambulatory STLMLC STLMLC [id number] Common 00:00:00 00:00:00 [facility] 2021-09-24 2021-09-24 ambulatory STLMLC STLMLC [id number] Common 00:00:00 00:00:00 [facility] 2021-09-24 2021-09-24 ambulatory STLMLC STLMLC [id number] Common 00:00:00 00:00:00 [facility] 2021-08-31 2021-08-31 Orders Doctor SNYDER [id number] Univers 00:00:00 00:00:00 Only Unassigned, BETTYE [id number] [place] [facility] [id number] Christopher as [phone] [address] 2021-08-25 2021-08-25 ambulatory STLMLC STLMLC [id number] Common 00:00:00 00:00:00 [facility] 2021-08-11 2021-08-11 [id number] Univers 13:00:00 13:00:00 AUGUSTIN pena [facility] 2021-08-03 2021-08-03 [facility] [id number] Univers 00:00:00 00:00:00 Augustin BORGES [id number] i ty [facility] [id number] [phone] In dical NAL [address] [place] [address] 2021-07-20 2021-07-20 Outpatient DIANA QUINTANA [id number] [facility] Diana 14:45:00 14:45:00 EDDY abdul 2020-12-07 2020-12-07 Refill [facility] [id number] 00:00:00 00:00:00 Augustin Borges [id number] [place] [id number] Professio [phone] [address] 2020-09-24 2020-09-24 [facility] [id number] 00:00:00 00:00:00 Augustin Borges [id number] [place] [id number] Professio [id number] [address] 2020-09-22 2020-09-22 [facility] [id number] 14:45:00 23:59:00 Encounter Jem Phelps [facility] [id number] [facility] [id number] 2020-09-07 2020-09-07 Refill [facility] [id number] 00:00:00 00:00:00 Augustin Borges [id number] [place] [id number] Professio [id number] [address] 2020-08-17 2020-08-17 [facility] [id number] 13:23:00 15:03:34 Visit Jem Borges [id number] [place] [id number] Professio [phone] [address] 2020-04-07 2020-04-07 Outpatient STLMLC STLMLC [id number] Common 00:00:00 00:00:00 [facility] 2020-03-31 2020-03-31 Outpatient STLMLC STLMLC [id number] Common 00:00:00 00:00:00 [facility] 2020-03-09 2020-03-09 Outpatient STLMLC STLMLC [id number] Common 00:00:00 00:00:00 [facility] Results This patient has no known results.
--- NOTE | 2022-01-31 17:54 | RAD REPORT ---
EXAM DESCRIPTION: CT - Thorax Wo Con - 01/31/2022 5:38 pm CLINICAL HISTORY: fall onto ground, left lateral rib tenderness COMPARISON: No comparisons TECHNIQUE: Axial 5 mm thick images of the chest were obtained without IV contrast. All CT scans are performed using dose optimization technique as appropriate and may include automated exposure control or mA/KV adjustment according to patient size. FINDINGS: No mass or infiltrate in the lung parenchyma. No pulmonary contusion. Trace amount of pleu ral fluid is present on the left. This could be reactive fluid or possibly a small amount of blood. T he attenuation is low at 14 Hounsfield units. The patient has a comminuted post oral lateral left ten th rib fracture. The rib is fractured in 3 locations closely approximated to one another. There is in saldana buckling of the fracture fragments. No other rib fractures present. There is no pneumothorax. No abnormal mediastinal or hilar masses or lymphadenopathy seen. No gross aortic or pulmonary artery finding suspected. Heart is borderline enlarged. Left atrium is enlarged. Dense aortic calcifications are present. Assessment is limited in the absence of IV contrast. No chest wall mass or abnormal axillary lymphadenopathy. Advanced thoracic spine degenerative changes are present. No compression fracture or acute thoracic s pine finding. IMPRESSION: Comminuted fracture of the left tenth rib. There are 3 closely approximated fractures of the posterolateral chest. Trace amount of fluid is present in pleural spaces adjacent to the fracture. Attenuation is 14 Hounsf ield units. This is probably reactive fluid with trace amount of blood. No pneumothorax or pulmonary contusion.
--- NOTE | 2022-01-31 17:56 | RAD REPORT ---
EXAM DESCRIPTION: RAD - Chest Pa And Lat (2 Views) - 01/31/2022 5:46 pm CLINICAL HISTORY: BLUNT CHEST TRAUMA COMPARISON: Two view chest July 2018 TECHNIQUE: Frontal and lateral views of the chest were obtained. FINDINGS: The lungs are fibrotic with flattened diaphragm and increased retrosternal space. Lung fie lds are hyperexpanded. This is a COPD pattern that appears to have progressed from 2019. Sternotomy wires are in place. CABG surgical changes are noted. Loop recorder overlies the lower left chest. Heart size is normal and central vasculature is within normal limits. No pneumothorax is present. Posterior left tenth rib is fractured. This is further detailed on CT [address] imaging. Trace costophrenic angle blunting on the left which could be reactive fluid, minimal bloo d or a combination. Thoracic spine degenerative changes are present. No aortic abnormality. IMPRESSION: Posterior left tenth rib fracture only partially imaged. No pneumothorax or large pleura l fluid collection. COPD
--- NOTE | 2022-01-31 18:06 | ER ---
Nurse's Notes [facility] Name: Allegra Anton Age: 81 yrs Sex: Female : 1940 Arrival Date: 01/31/2022 Time: 16:41 Bed 16 Private MD: Diagnosis: Fracture of one rib, left side;Traumatic hemothorax, initial encounter-trace Presentation: 01/31 16:51 Chief complaint: Patient states: fall 3 days ago. Pt states "my whole left side hurts aa5 (left lateral aspect of chest) and my left arm". Pt also reports pain to right elbow. Coronavirus screen: At this time, the client does not indicate any symptoms associated with coronavirus-19. Ebola Screen: Patient denies travel to an Ebola-affected area in the 21 days before illness onset. Initial Sepsis Screen: Does the patient meet any 2 criteria? No. Patient's initial sepsis screen is negative. Does the patient have a suspected source of infection? No. Patient's initial sepsis screen is negative. Risk Assessment: Do you want to hurt yourself or someone else? Patient reports no desire to harm self or others. Onset of symptoms was January 2022. 16:51 Acuity: TANIKA 4 aa5 16:51 Method Of Arrival: Ambulatory aa5 19:00 Care prior to arrival: None. Mechanism of Injury: Fall from standing position. vc1 19:00 Trauma event details: Injury occurred in the [facility]. vc1 Triage Assessment: 19:00 General: Appears in no apparent distress. Behavior is calm, cooperative, appropriate vc1 for age. Pain: Complains of pain in posterior aspect of left lateral abdomen Pain currently is 3 out of 10 on a pain scale. Historical: - Allergies: 16:52 No Known Allergies; aa5 - PMHx: 16:52 Atrial Fib; Hypertension; Myocardial infarction; aa5 - PSHx: 16:52 heart stents; heart ablation; Heart Double bypass; Heart Monitor; aa5 - Immunization history:: Adult Immunizations unknown. - Social history:: Smoking status: Patient denies any tobacco usage or history of. - Immunization history: Last tetanus immunization: - up to date. - Family history:: not pertinent. - Hospitalizations: : No recent hospitalization is reported. Screenin:00 Abuse screen: Denies threats or abuse. Nutritional screening: On. Tuberculosis vc1 screening: No symptoms or risk factors identified. Fall Risk Fall in past 12 months (25 points). Secondary diagnosis (15 points) impaired mobility, IV access (20 points). Ambulatory Aid- None/Bed Rest/Nurse Assist (0 pts). Gait- Weak (10 pts.). Mental Status- Oriented to own ability (0 pts). Total Lockhart Fall Scale indicates High Risk Score (45 or more points). Fall prevention measures have been instituted. Side Rails Up X 2 Placed Close to Nursing Station 1:1 Attendant Assigned Family Present and informed to notify staff if the need to leave the bedside. Primary Survey: 19:00 NO uncontrolled hemorrhage observed. A: The client is awake and alert. The airway is vc1 patent. Breathing/Chest: Spontaneous respiratory effort, equal unlabored respirations, breath sounds clear bilaterally, regular pattern, symmetrical chest rise and fall. Circulation: No external hemorrhage present. Regular and strong central pulse, skin warm/dry/normal color. Disability Client is alert. Exposure/Environment: There is no evidence of uncontrolled external bleeding. 20:00 Reassessment Alertness and Airway: Awake and alert. The airway is patent. Breathing: vc1 Spontaneous respiratory effort, equal unlabored respirations, breath sounds clear bilaterally, regular pattern with symmetrical chest rise and fall. Circulation: No external hemorrhage noted. Regular and strong central pulse, skin warm/dry/normal color. Disability: Alert. Assessment: 19:13 Reassessment: Pt stated she doesn't want anything for pain fito. vc1 20:00 Reassessment: Patient and/or family updated on plan of care and expected duration. Pain vc1 level reassessed. Patient is alert, oriented x 3, equal unlabored respirations, skin warm/dry/pink. 21:00 Reassessment: No changes from previously documented assessment. Patient and/or family vc1 updated on plan of care and expected duration. Pain level reassessed. Patient is alert, oriented x 3, equal unlabored respirations, skin warm/dry/pink. 22:00 Reassessment: No changes from previously documented assessment. Patient and/or family vc1 updated on plan of care and expected duration. Pain level reassessed. Patient is alert, oriented x 3, equal unlabored respirations, skin warm/dry/pink. Vital Signs: 16:53 BP 174 / 83; Pulse 54; Resp 18 S; Temp 98.0(TE); Pulse Ox 98% on R/A; Weight 42.18 kg aa5 (R); Height 5 ft. 4 in. (162.56 cm) (R); 19:15 BP 208 / 96; Pulse 58; Resp 18; Pulse Ox 95% ; vc1 21:00 BP 197 / 72; Pulse 68; Resp 23; Pulse Ox 94% on R/A; vc1 21:45 BP 142 / 52; Pulse 58; Resp 23; Pulse Ox 91% on R/A; vc1 21:45 BP 142 / 52; Pulse 58; Resp 23; Pulse Ox 91% ; Pain 0/10; vc1 21:52 BP 142 / 52; Pulse 57; Resp 23; Pulse Ox 91% ; vc1 22:30 BP 153 / 45; Pulse 54; Resp 17; Pulse Ox 92% on R/A; vc1 16:53 Body Mass Index 15.96 (42.18 kg, 162.56 cm) aa5 Pepper Coma Score: 19:00 Eye Response: spontaneous(4). Verbal Response: oriented(5). Motor Response: obeys vc1 commands(6). Total: 15. Trauma Score (Adult): 19:00 Eye Response: spontaneous(1); Verbal Response: oriented(1); Motor Response: obeys vc1 commands(2); Systolic BP: > 89 mm Hg(4); Respiratory Rate: 10 to 29 per min(4); Cornucopia Score: 15; Trauma Score: 12 ED Course: 16:41 Patient arrived in ED. as 16:51 Triage completed. aa5 16:51 Arm band placed on. aa5 16:54 Micah Coronel MD is Attending Physician. rn 17:32 Nithya Mota, RN is Primary Nurse. kb3 17:39 Thorax Wo Con In Process Unspecified. EDMS 17:48 XRAY Chest Pa And Lat (2 Views) In Process Unspecified. EDMS 18:05 Isma Anne is Hospitalizing Provider. rn 18:20 Inserted saline lock: 20 gauge in right antecubital area, using aseptic technique. kb3 Blood collected. 18:32 Basic Metabolic Panel Sent. kb3 18:32 Protime (+inr) Sent. kb3 18:32 Ptt, Activated Sent. kb3 18:32 CBC with Diff Sent. kb3 19:00 Patient has correct armband on for positive identification. Fall risk band placed. Bed vc1 in low position. Client placed on continuous cardiac and pulse oximetry monitoring. NIBP monitoring applied. 19:00 Thermoregulation: warm blanket given to patient. vc1 19:00 Patient maintains SpO2 saturation greater than 95% on room air. vc1 22:00 No provider procedures requiring assistance completed. Patient admitted, IV remains in vc1 place. Administered Medications: 21:06 Drug: morphine 2 mg Route: IVP; Infused Over: 4 mins; Site: right antecubital; vc1 21:45 Follow up: BP 142 / 52; Pulse 58 bpm; Resp 23 bpm; Pulse Ox 91% ; Pain 0/10 Adult; vc1 Response: Marked relief of symptoms; Pain is decreased 21:06 Drug: Zofran (Ondansetron) 4 mg Route: IVP; Site: right antecubital; vc1 21:45 Follow up: Response: Marked relief of symptoms; Nausea is decreased vc1 21:06 Drug: hydrALAZINE 10 mg Route: IVP; Site: right antecubital; vc1 21:45 Follow up: BP 142 / 52; Pulse 58 bpm; Resp 23 bpm; Pulse Ox 91% RA; Response: No vc1 adverse reaction; Marked relief of symptoms; Blood pressure is lowered Medication: 22:00 VIS not applicable for this client. vc1 Intake: 22:00 PO: 240ml; Total: 240ml. vc1 22:00 voided times one vc1 Outcome: 18:06 Decision to Hospitalize by Provider. rn 22:00 Admitted to ER Hold. Please see [facility] for further documentation. vc1 22:00 Condition: good 22:00 Instructed on the need for admit. 02/01 16:42 Patient left the ED. bp Signatures: Dispatcher [employer] EDTamika Clark Roman, MD MD rn Calderon, Audri, RN RN aa5 Oscar Hunter RN RN bp Elysia Cavazos RN RN vc1 Nithya Mota, TEJAS RN kb3 Corrections: (The following items were deleted from the chart) 01/31 18:33 18:32 Inserted saline lock: 20 gauge in right antecubital area, using aseptic kb3 technique. Blood collected. kb3
--- NOTE | 2022-01-31 18:06 | EDPHYS ---
Physician Documentation [facility] Name: Allegar Anton Age: 81 yrs Sex: Female : 1940 Arrival Date: 01/31/2022 Time: 16:41 Bed 16 Private MD: ED Physician Micah Coronel HPI: 01/31 17:02 This 81 yrs old Female presents to ER via Ambulatory with complaints of Fall Injury, rn rib pain. 17:02 Details of fall: The patient fell from a supine position, out of bed. Onset: The rn symptoms/episode began/occurred 3 day(s) ago. Associated injuries: The patient sustained injury to the chest, contusion, pain with movement, tenderness. Severity of symptoms: At their worst the symptoms were moderate, in the emergency department the symptoms are unchanged. The patient has not experienced similar symptoms in the past. The patient has not recently seen a physician. Pt reports fall twice 3 days ago, thinks injured left ribs when fell out of bed 3 days ago, landed on carpet, did not hit furniture, hurts to breathe and move. NO other injuries. Bed is on ground, so minimal height. . Historical: - Allergies: 16:52 No Known Allergies; aa5 - PMHx: 16:52 Atrial Fib; Hypertension; Myocardial infarction; aa5 - PSHx: 16:52 heart stents; heart ablation; Heart Double bypass; Heart Monitor; aa5 - Immunization history:: Adult Immunizations unknown. - Social history:: Smoking status: Patient denies any tobacco usage or history of. - Immunization history: Last tetanus immunization: - up to date. - Family history:: not pertinent. - Hospitalizations: : No recent hospitalization is reported. ROS: 17:02 Constitutional: Negative for fever, chills, and weight loss, Eyes: Negative for injury, rn pain, redness, and discharge, Neck: Negative for injury, pain, and swelling, Cardiovascular: + chest pain to left side Respiratory: Negative for shortness of breath, cough, wheezing Abdomen/GI: Negative for abdominal pain, nausea, vomiting, diarrhea, and constipation, Back: Negative for injury and pain, MS/Extremity: Negative for injury and deformity, Skin: Negative for injury, rash, and discoloration, Neuro: Negative for headache, weakness, numbness, tingling, and seizure. Exam: 17:02 Constitutional: This is a well developed, well nourished patient who is awake, alert, rn and in no acute distress. Head/Face: Normocephalic, atraumatic. Eyes: Periorbital areas with no swelling, redness, or edema. Chest/axilla: + tenderness along left lateral and posterior chest wall, no crepitus, no ecchymosis Cardiovascular: Bradyardic. No pulse deficits. Respiratory: No increased work of breathing, no retractions or nasal flaring. Abdomen/GI: Soft, non-tender, no ecchymosis Back: No spinal tenderness. No costovertebral tenderness. Skin: Warm, dry MS/ Extremity: Pulses equal, no cyanosis. Neurovascular intact. Full, normal range of motion. Equal circumference. Neuro: Awake and alert, GCS 15, oriented to person, place, time, and situation. Cranial nerves II-XII grossly intact. Motor strength 4/5 in all extremities. Sensory grossly intact. Cerebellar exam normal. Vital Signs: 16:53 BP 174 / 83; Pulse 54; Resp 18 S; Temp 98.0(TE); Pulse Ox 98% on R/A; Weight 42.18 kg aa5 (R); Height 5 ft. 4 in. (162.56 cm) (R); 19:15 BP 208 / 96; Pulse 58; Resp 18; Pulse Ox 95% ; vc1 21:00 BP 197 / 72; Pulse 68; Resp 23; Pulse Ox 94% on R/A; vc1 21:45 BP 142 / 52; Pulse 58; Resp 23; Pulse Ox 91% on R/A; vc1 21:45 BP 142 / 52; Pulse 58; Resp 23; Pulse Ox 91% ; Pain 0/10; vc1 21:52 BP 142 / 52; Pulse 57; Resp 23; Pulse Ox 91% ; vc1 22:30 BP 153 / 45; Pulse 54; Resp 17; Pulse Ox 92% on R/A; vc1 16:53 Body Mass Index 15.96 (42.18 kg, 162.56 cm) aa5 Hedley Coma Score: 19:00 Eye Response: spontaneous(4). Verbal Response: oriented(5). Motor Response: obeys vc1 commands(6). Total: 15. Trauma Score (Adult): 19:00 Eye Response: spontaneous(1); Verbal Response: oriented(1); Motor Response: obeys vc1 commands(2); Systolic BP: > 89 mm Hg(4); Respiratory Rate: 10 to 29 per min(4); Hedley Score: 15; Trauma Score: 12 MDM: 16:54 Patient medically screened. rn 17:53 Differential diagnosis: abrasion, contusion, fracture, sprain, strain. rn 18:03 Data reviewed: vital signs, nurses notes, radiologic studies, CT scan. Counseling: I rn had a detailed discussion with the patient and/or guardian regarding: the historical points, exam findings, and any diagnostic results supporting the discharge/admit diagnosis, lab results, radiology results, the need for further work-up and treatment in the hospital. Response to treatment: the patient's symptoms have mildly improved after treatment. Admission orders: after a detailed discussion of the patient's condition and case, the admit orders are written by me. ED course: + comminuted left 10th rib fracture, with trace hemothorax. Consulted with Dr. Hurt, requests admission to hospitalist service, pain meds, incentive spirometry, serial h/h, and he will consult. . 01/31 18:06 Order name: CBC with Diff; Complete Time: 22:43 rn 01/31 18:06 Order name: Basic Metabolic Panel; Complete Time: :43 01/31 18:06 Order name: Protime (+inr); Complete Time: 22:43 rn 01/31 18:06 Order name: Ptt, Activated; Complete Time: 22:43 rn 01/31 20:29 Order name: SARS RAPID; Complete Time: :43 mw2 01/31 23:46 Order name: Hemoglobin; Complete Time: 04:04 EDGA 01/31 23:46 Order name: Hematocrit; Complete Time: 04:04 EDMS 02/01 04:56 Order name: CBC with Automated Diff; Complete Time: 05:04 EDMS 02/01 05:18 Order name: Basic Metabolic Panel; Complete Time: :38 EDMS 02/01 05:18 Order name: Lipid Profile; Complete Time: 05:38 EDMS 02/01 05:18 Order name: Magnesium; Complete Time: 05:38 EDMS 02/01 05:18 Order name: Thyroid Stimulating Hormone; Complete Time: 05: EDMS 02/01 08:04 Order name: Potassium EDMS 02/01 11:39 Order name: Hemoglobin EDMS 01/31 16:54 Order name: XRAY Chest Pa And Lat (2 Views); Complete Time: 18:07 rn 01/31 17:01 Order name: CT Chest Wo Con rn 01/31 17:05 Order name: Thorax Wo Con; Complete Time: 18:07 EDMS 01/31 18:06 Order name: IV Start; Complete Time: 18:32 rn 01/31 18:15 Order name: INCENTIVE SPIROMETRY rn 01/31 18:15 Order name: O2 Sat Monitoring; Complete Time: 19:12 rn 01/31 18:15 Order name: Cardiac monitoring; Complete Time: 19:12 rn 02/01 08:47 Order name: RAD EDMS 02/01 11:39 Order name: Hematocrit EDMS Administered Medications: 21:06 Drug: morphine 2 mg Route: IVP; Infused Over: 4 mins; Site: right antecubital; vc1 21:45 Follow up: BP 142 / 52; Pulse 58 bpm; Resp 23 bpm; Pulse Ox 91% ; Pain 0/10 Adult; vc1 Response: Marked relief of symptoms; Pain is decreased 21:06 Drug: Zofran (Ondansetron) 4 mg Route: IVP; Site: right antecubital; vc1 21:45 Follow up: Response: Marked relief of symptoms; Nausea is decreased vc1 21:06 Drug: hydrALAZINE 10 mg Route: IVP; Site: right antecubital; vc1 21:45 Follow up: BP 142 / 52; Pulse 58 bpm; Resp 23 bpm; Pulse Ox 91% RA; Response: No vc1 adverse reaction; Marked relief of symptoms; Blood pressure is lowered Disposition Summary: 01/31/22 18:06 Hospitalization Ordered Hospitalization Status: Observation rn Provider: Isma Anne rn Condition: Stable rn Problem: new rn Symptoms: have improved rn Bed/Room Type: Standard rn Location: [facility] ER HOLD(01/31/22 18:35) mw Room Assignment: ERHOLD-(01/31/22 18:35) mw Diagnosis - Fracture of one rib, left side rn - Traumatic hemothorax, initial encounter - 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 Instructions: - Discharge Summary Sheet rn - Rib Fracture rn - How to Use an Incentive Spirometer rn Forms: - Medication Reconciliation Form rn - SBAR form rn Prescriptions: - Tramadol 50 mg Oral Tablet - take 1 tablet by ORAL route every 8 hours as needed; 12 tablet; Refills: 0, rn Product Selection Permitted Signatures: Dispatcher [employer] EDMS Andreia Mccabe RN RN Micah Stevens MD MD rn Calderon, Audri, RN RN aa5 Elysia Cavazos RN RN vc1 Debora Tucker PA PA sb3 Corrections: (The following items were deleted from the chart) : 17:53 Data reviewed: vital signs, nurses notes, radiologic studies, CT scan, and as a rn result, I will discharge patient, rn 17:53 Counseling: I had a detailed discussion with the patient and/or guardian rn regarding: the historical points, exam findings, and any diagnostic results supporting the discharge/admit diagnosis, radiology results, the need for outpatient follow up, to return to the emergency department if symptoms worsen or persist or if there are any questions or concerns that arise at home, rn 17:53 Special discussion: I discussed with the patient/guardian in detail that at this rn point there is no indication for admission to the hospital. It is understood, however, that if the symptoms persist or worsen the patient needs to return immediately for re-evaluation. Based on the history and exam findings, there is no indication for further emergent testing or inpatient evaluation. I discussed with the patient/guardian the need to see the primary care provider for further evaluation of the symptoms. rn 18:06 18:06 Traumatic hemothorax, initial encounter rn rn 18:35 18:06 Telemetry/MedSurg (observation) rn mw 18:35 18:06 marcio smith
[2022-01-31 18:43] LABS: Absolute Lymphocytes (CBC) 0.8 K/uL (0.7-4.9); Hematocrit 36.7 % (36.0-45.0); MCV 85.5 fL (80-100); MPV 6.7 fL (7.6-11.3); RBC Red Blood Cell Count 4.29 M/uL (3.86-4.86)
[2022-01-31 18:47] LABS: Protime INR 1.06
[2022-01-31 18:51] LABS: Potassium 3.2 mmol/L (3.5-5.1)
[2022-01-31] MEDS ORDERED: HYDRALAZINE HCL 20 MG/ML VIAL ONE (20:55)
[2022-01-31] MEDS ORDERED: MORPHINE 2 MG/ML SYR ONE (20:55)
[2022-01-31] MEDS ORDERED: ONDANSETRON 4 MG/2 ML VIAL ONE (20:56)
[2022-01-31 21:29] LABS: SARS-CoV-2 Antigen Rapid Res Negative (Negative)
--- NOTE | 2022-01-31 22:44 | P.HP ---
Certification for Inpatient Patient admitted to: Observation With expected LOS: <2 Midnights Patient will require the following post-hospital care: None Practitioner: I am a practitioner with admitting privileges, knowledge of patient current condition, hospital course, and medical plan of care. Services: Services provided to patient in accordance with Admission requirements found in Title 42 Section 412.3 of the Code of Federal Regulations Patient History Date of Service: 02/01/22 Reason for admission: Rib Fractures History of Present Illness: Patient is an 81-year-old female with history of A. fib on Pradaxa, hypertension, and CAD who presented to the ED status post fall. Patient states that she fell twice 3 days ago, once getting out of bed and once walking from her garage inside her house. She said that her legs just got tripped up. She is a poor historian. She denies hitting her head or LOC. She is only complaining of pain to her left side. Chest CT showed "Comminuted fracture of the left tenth rib. There are 3 closely approximated fractures of the posterolateral chest. Trace amount of fluid is present in pleural spaces adjacen t to the fracture. Attenuation is 14 Hounsfield units. This is probably reactive fluid with trace amount of blood. No pneumothorax or pulmonary contusion." General surgery was consulted and wishes for patient to be admitted to hospitalist to trend serial H&H, with pain control and incentive spirometry. She is admitted for further evaluation and treatment. Allergies No Known Allergies Allergy (Unverified 09/08/16 17:16) Home medications list reviewed: Yes - Past Medical/Surgical History Diabetic: No -: Afib -: Hypertension -: Coronary Artery Disease -: [place] -: Double Bypass -: Stents -: Cardiac Ablation Psychosocial/ Personal History: Patient lives at home with her . - Family History Family History: Reviewed- Non-Contributory - Social History Smoking Status: Never smoker Alcohol use: No CD- Drugs: No Caffeine use: Yes Place of Residence: Home Review of Systems Musculoskeletal: Other (left sided rib pain) Physical Examination - Physical Exam General: Alert, In no apparent distress HEENT: Atraumatic, PERRLA, EOMI, Sclerae nonicteric Neck: Supple, 2+ carotid pulse no bruit, No LAD, Without JVD or thyroid abnormality Respiratory: Clear to auscultation bilaterally, Normal air movement Cardiovascular: Regular rate/rhythm, Normal S1 S2 Gastrointestinal: Normal bowel sounds, No tenderness Musculoskeletal: No tenderness Integumentary: No rashes Neurological: Normal speech, Normal strength at 5/5 x4 extr, Normal tone, Normal affect - Studies Laboratory Data (last 24 hrs) 01/31/22 18:29: PT 11.7, INR 1.06, APTT 33.4 01/31/22 18:29: Sodium 141, Potassium 3.2 L, BUN 13, Creatinine 0.99, Glucose 104 01/31/22 18:29: WBC 6.80, Hgb 12.0, Hct 36.7, Plt Count 164 Assessment and Plan - Problems (Diagnosis) (1) Rib fracture Current Visit: Yes Status: Acute Qualifiers: Encounter type: initial encounter Rib fracture type: multiple ribs Fracture type: closed Laterality: left Qualified Code(s): S22.42XA - Multiple fractures of ribs, left side, initial encounter for closed fracture (2) Hemothorax on left Current Visit: Yes Status: Acute (3) Atrial fibrillation Current Visit: Yes Status: Chronic Qualifiers: Atrial fibrillation type: unspecified Qualified Code(s): I48.91 - Unspecified atrial fibrillation (4) Hypertension Current Visit: Yes Status: Chronic Qualifiers: Hypertension type: primary hypertension Qualified Code(s): I10 - Essential (primary) hypertension (5) CAD (coronary artery disease) Current Visit: Yes Status: Acute Qualifiers: Coronary Disease-Associated Artery/Lesion type: bypass graft [place] vs. transplanted heart: cheesh-na heart Associated angina: without angina Qualified Code(s): I25.810 - Atherosclerosis of coronary artery bypass graft(s) without angina pectoris (6) Hypokalemia Current Visit: Yes Status: Acute - Plan -Trace hemothorax. Patient is on pradaxa. Hemoglobin trended 12 -> 10.7. Repeat in morning. -Patient only complaining of pain on her left side. She denies difficulty breathing. Continue incentive spirometry -Pain control with low dose morphine -Monitor pulse ox and telemetry. She has been hypertensive. -General surgery consulted. -Monitor and replete electrolytes per protocol -Reconcile and continue home medications -Pradaxa for VTE ppx -Full code Discharge Plan: Home Plan to discharge in: 24 Hours - Advance Directives Does patient have a Living Will: No Does patient have a Durable POA for Healthcare: No - Code Status/Comfort Care Code Status Assessed: Yes (Full) Critical Care: No Time Spent Managing Pts Care (In Minutes): 50
[2022-01-31] MEDS ORDERED: ALBUTEROL 2.5 MG/3 ML NEB SOL NEB PRN (23:06)
[2022-01-31] MEDS ORDERED: MELATONIN 5 MG TABLET PO PRN (23:06)
[2022-01-31] MEDS ORDERED: ACETAMINOPHEN 500 MG TAB PO PRN (23:06)
[2022-01-31] MEDS ORDERED: ONDANSETRON 4 MG/2 ML VIAL IV PRN (23:06)
[2022-01-31 23:43] LABS: Hematocrit 31.4 % (36.0-45.0)
[2022-02-01] MEDS ORDERED: MORPHINE 2 MG/ML SYR IV PRN (01:00)
[2022-02-01 01:09] VITALS: BMI 16.0
[2022-02-01] MEDS ORDERED: MORPHINE 2 MG/ML SYR ONE (03:48)
[2022-02-01 04:54] LABS: Absolute Lymphocytes (CBC) 0.8 K/uL (0.7-4.9); Hematocrit 28.7 % (36.0-45.0); Lymphocytes % 13.8 % (15.3-44.8); MCV 83.7 fL (80-100); MPV 6.3 fL (7.6-11.3); RBC Red Blood Cell Count 3.43 M/uL (3.86-4.86)
[2022-02-01 05:17] LABS: Magnesium 1.9 mg/dL (1.8-2.4); Potassium 3.1 mmol/L (3.5-5.1); Thyroid Stimulating Hormone 3.5 uIU/mL (0.360-3.740)
[2022-02-01] MEDS ORDERED: POTASSIUM 25 MEQ EFFERV TAB PO ONE (05:34)
[2022-02-01] MEDS ORDERED: POTASSIUM 25 MEQ EFFERV TAB ONE ×2 (05:59→06:31)
[2022-02-01] MEDS ORDERED: HYDROCODONE/APAP 5/325 MG TAB PO PRN (06:53)
--- NOTE | 2022-02-01 08:47 | RAD REPORT ---
EXAM DESCRIPTION: Jude Lundberg And Michael (2 Views)02/01/2022 8:14 am CLINICAL HISTORY: Chest pain COMPARISON: January 31, 2022 FINDINGS: Patient's known left tenth rib fracture is not well imaged on this exam. No pneumothorax seen. No significant pleural effusion Mild left basilar lung atelectasis. Right lung appears clear. Heart is mildly enlarged. Postsurgical changes involve the chest. Cardiac m onitor in place
--- NOTE | 2022-02-01 10:30 | P.CNS ---
Date of Consult: 02/01/22 Reason for consult: Fracture rib History of present illness: Patient is a 81-year-old female presents to the emergency room with 2 falls resulting in a fracture of the left 10th rib. Fracture itself is comminuted. There is trace fluid with no evidence of pneumothorax in the left chest on CT of the chest. Patient does not have any difficulty breathing. Patient is using her incentive spirometry. Patient is satting well on 2 L of oxygen. Patient does have A. fib and therefore is on Pradaxa. Patient was admitted to monitor H&H as she is on anticoagulation. Her H&H has dropped a little bit from 12-9.8 she has another 1 pending this afternoon. Repeat chest x-ray does not show any increasing effusion. Review of systems: Otherwise unremarkable Past medical history: A. fib, hypertension, coronary artery disease Past surgical history: Stent placement, CABG and ablation Allergies: None Social history: Patient denies smoking or drinking alcohol Family history: Noncontributory Vital signs: Stable, afebrile Physical exam: Awake alert oriented x3 Head and neck exam: No neck masses, no JVD, throat clear and neck supple. Cranial nerves II through XII grossly within normal limits. Chest: Clear with slightly diminished breath sounds in the left base Heart: S1-S2 Abdomen: Soft, nondistended, nontender, positive bowel sound Extremity: Neurovascular intact, nontender Neuro: Nonfocal Diagnostic data: H&H as per HPI, chest x-ray and CT scan as per HPI Assessment: Left 10th comminuted rib fracture secondary to fall Plan/recommendation: Monitor H&H, parenteral pain management, oxygen per protocol and incentive spirometry. If the H&H remained stable and there is no significant change in the chest x-ray patient can be discharged home with pain control and incentive spirometry. Please reconsult surgery as needed. CC:
[2022-02-01 11:25] LABS: Hematocrit 34.4 % (36.0-45.0)
--- NOTE | 2022-02-01 13:03 | P.DS ---
Admission Date: 01/31/22 Discharge Date: 02/01/22 Disposition: ROUTINE DISCHARGE Discharge Condition: GOOD Reason for Admission: Rib Fractures Consultations: Surgery - Dr. Hurt Brief History of Present Illness: 81-year-old female with history of A. fib on Pradaxa, hypertension, and CAD who presented to the ED status post fall. Patient states that she fell twice 3 days ago, once getting out of bed and once walking from her garage inside her house. She said that her legs just got tripped up. She is a poor historian. She denies hitting her head or LOC. She is only complaining of pain to her left s sathya. Chest CT showed "Comminuted fracture of the left tenth rib. There are 3 closely approximated fractures of the posterolateral chest. Trace amount of fluid is present in pleural spaces adjacent to the fracture. Attenuation is 14 Hounsfield units. This is probably reactive fluid with trace amount of blood. No pneumothorax or pulmonary contusion." General surgery was consulted and wishes for patient to be admitted to hospitalist to trend serial H&H, with pain control and incentive spirometry. She is admitted for further evaluation and treatment. Hospital Course: Problem list Left-sided rib fracture Atrial fibrillation on anticoagulation Hypertension CAD Hypokalemia Patient presented with left sided chest pain/flank pain after fall ~2-3 days ago. She was found to have rib fractures in the area. General surgery was consulted for trauma. CT chest noted small amount of fluid in the area with possible minimal blood. She was monitored and hemoglobin was trended. Initially showed a decrease, however recheck was back to baseline. Repeat chest x-ray did not show any effusion, no new/worsening findings. She reported feeling better and requested to be discharged home. Patient discharged with prescription for pain medication, and recommended frequent use of incentive spirometer to minimize risk of atelectasis. Follow up with PCP within 3-5 days. No other changes in medications. Recommended to not take pain medication within a few hours of her night / sleep medication. Vital Signs/Physical Exam: Temp Pulse Resp BP Pulse Ox 99.3 F 75 17 168/89 H 100 02/01/22 04:00 02/01/22 08:00 02/01/22 08:00 02/01/22 08:00 02/01/22 08:00 General: Alert, In no apparent distress, Oriented x3 HEENT: EOMI, Sclerae nonicteric Neck: Supple, No LAD Respiratory: Clear to auscultation bilaterally, Diminished (at left base slightly) Cardiovascular: No edema, Regular rate/rhythm Capillary refill: <2 Seconds Gastrointestinal: Soft and benign, Non-distended Musculoskeletal: Tenderness (left lower ribs) Integumentary: No rashes, No significant lesion Neurological: Normal speech, Normal affect Laboratory Data at Discharge: WBC 5.80 K/uL (4.3-10.9) D 02/01/22 04:33 Hgb 11.5 g/dL (12.0-15.0) L 02/01/22 11:10 Hct 34.4 % (36.0-45.0) L D 02/01/22 11:10 Plt Count 150 K/uL (152-406) L 02/01/22 04:33 PT 11.7 SECONDS (9.5-12.5) 01/31/22 18:29 INR 1.06 01/31/22 18:29 APTT 33.4 SECONDS (24.3-36.9) 01/31/22 18:29 Sodium 142 mmol/L (136-145) 02/01/22 04:33 Potassium 3.4 mmol/L (3.5-5.1) L 02/01/22 07:20 BUN 13 mg/dL (7-18) 02/01/22 04:33 Creatinine 0.86 mg/dL (0.55-1.3) 02/01/22 04:33 Glucose 111 mg/dL (74-106) H 02/01/22 04:33 Magnesium 1.9 mg/dL (1.8-2.4) 02/01/22 04:33 Triglycerides 81 mg/dL (<150) 02/01/22 04:33 Cholesterol 148 mg/dL (<200) 02/01/22 04:33 HDL Cholesterol 34 mg/dL (40-60) L 02/01/22 04:33 Cholesterol/HDL Ratio 4.35 02/01/22 04:33 Home Medications: Hydrocodone 5/APAP 325 [[place] 5/325*] 1 tab PO Q8H PRN #10 tab 02/01/22 New Medications: Hydrocodone 5/APAP 325 [[place] 5/325*] 1 tab PO Q8H PRN #10 tab PRN Reason: Pain Scale 5-7 (Moderate) Physician Discharge Instructions: Patient presented with left sided chest pain/flank pain after fall ~2-3 days ago. She was found to have rib fractures in the area. General surgery was consulted for trauma. CT chest noted small amount of fluid in the area with possible minimal blood. She was monitored and hemoglobin was trended. Initially showed a decrease, however recheck was back to baseline. Repeat chest x-ray did not show any effusion, no new/worsening findings. She reported feeling better and requested to be discharged home. Patient discharged with prescription for pain medication, and recommended frequent use of incentive spirometer to minimize risk of atelectasis. Follow up with PCP within 3-5 days. No other changes in medications. Recommended to not take pain medication within a few hours of her night / sleep medication. Followup: NONE,NONE [Primary Care Provider] - Time spent managing pt's care (in minutes): 45
[2022-02-01] MEDS ORDERED: ALBUTEROL 2.5 MG/3 ML NEB SOL NEB PRN (15:00)
[2022-02-01 17:47] VITALS: TEMP 98
[2022-02-01 18:00] VITALS: BP 153/45; O2SAT 92
== END 2022-02-01 16:19 | disposition home or self-care (01) ==
LOC: ER 16:39 → ERHOLD 20:45
PROVIDERS: ADMIT Internal Medicine; ATTEND Hospitalist
DX: S27.1XXA Traumatic hemothorax, initial encounter (principal); S22.32XA Fracture of one rib, left side, initial encounter for closed fracture; I48.91 Unspecified atrial fibrillation; E87.6 Hypokalemia; I10 Essential (primary) hypertension; I25.10 Atherosclerotic heart disease of native coronary artery without angina pectoris; I25.2 Old myocardial infarction; W01.0XXA Fall on same level from slipping, tripping and stumbling without subsequent striking against object, initial encounter; Y92.003 Bedroom of unspecified non-institutional (private) residence as the place of occurrence of the external cause; Z20.822 Contact with and (suspected) exposure to COVID-19; Z79.01 Long term (current) use of anticoagulants; Z95.5 Presence of coronary angioplasty implant and graft; Z95.1 Presence of aortocoronary bypass graft
CPT/HCPCS: 85025 ×2; 80048 ×2; 36415; 83735; 84132; 85610; 80061; 85730; 84443; 85018 ×2; 85014 ×2; 71250; 71046 ×2; 97116; 97161; 97530; 94010; 96375; 96374; 99285; 87811; J0360; J2270 ×2; J2405; G0378 ×3